=== PATIENT | female | born 1940 | race Caucasian/White ===

== ENCOUNTER 2016-09-09 09:25 | Inpatient (IN) | payer MEDICARE ==
--- NOTE | 2016-09-09 09:35 | ERPHSYRPT ---
- History of Present Illness Time Seen by Provider: 09/09/16 09:25 Source: patient Exam Limitations: clinical condition Patient Subjective Stated Complaint: PT REPORTS INCREASED SOB OVER THE LAST FEW DAYS-STATES THAT SHE HAS BEEN SLEEPING IN A CHAIR DUE TO SOB WHILE LIEING DOWN- REPORTS ALL OVER SWELLING Triage Nursing Assessment: PT PALE WARM ET DRY UPON ARRIVAL-SLIGHT RETRACTIONS NOTED-SOB WITH MOVEMENT NOTED-LUNGS CLEAR Timing/Duration: day(s) (3 worsened), week(s) (1) Severity of Dyspnea-Max: moderate Severity of Dyspnea-Current: moderate Possible Cause: no prior episodes Modifying Factors: Improves With: exertion, lying down Associated Symptoms: ankle swelling, leg swelling Allergies/Adverse Reactions: Penicillins Allergy (Verified 09/09/16 09:29) Home Medications: Aspirin 81 mg PO DAILY 09/09/16 [History] Hx Tetanus, Diphtheria Vaccination/Date Given: Yes Hx Influenza Vaccination/Date Given: No Hx Pneumococcal Vaccination/Date Given: No Immunizations Up to Date: Yes - Review of Systems Constitutional: No Symptoms Eyes: No Symptoms Ears, Nose, & Throat: No Symptoms Respiratory: Dyspnea, Dyspnea on Exertion (HERNANDEZ) Cardiac: Edema Abdominal/Gastrointestinal: No Symptoms Musculoskeletal: No Symptoms Skin: No Symptoms Neurological: No Symptoms Psychological: No Symptoms Endocrine: No Symptoms Hematologic/Lymphatic: No Symptoms - Past Medical History Pertinent Past Medical History: Yes Neurological History: Stroke - Past Surgical History Past Surgical History: Yes Gastrointestinal: Cholecystectomy, Hernia Repair Other Surgical History: gangene gb - Social History Smoking Status: Never smoker Exposure to second hand smoke: No Drug Use: none Patient Lives Alone: No - Female History Hx Now: No - Nursing Vital Signs Nursing Vital Signs: Initial Vital Signs Temperature 98.2 F Temperature Source Oral Pulse Rate 90 Respiratory Rate 22 Blood Pressure [Right Arm] 152/82 Pain Intensity 0 - Physical Exam General Appearance: moderate distress Eye Exam: eyes nml inspection Neck Exam: normal inspection, non-tender, supple, full range of motion Respiratory Exam: respiratory distress, crackles/rales (bibasilar) Cardiovascular/Chest Exam: normal heart sounds, regular rate/rhythm, edema (4+ pretibial chele LE) Abdominal/Gastrointestinal Exam: soft, normal bowel sounds Extremity Exam: non-tender, normal range of motion, pedal edema Peripheral Pulses Exam: dorsalis-pedis (R): 3+, dorsalis-pedis (L): 3+ Neurologic Exam: alert, oriented x 3, depressed mood/affect Skin Exam: normal color, warm, dry SpO2 Interpretation: hypoxic (with O2 sats decreased to 88% upon lying on stretcher here in ED) SpO2: 93 Oxygen Delivery: Room Air - Course Nursing assessment & vital signs reviewed: Yes EKG Interpreted by Me: RATE (99), Sinus Rhythm (with PAC's ), Left Hayward Deviation, Right Bundle Branch Block (with LAFB), Other (Anterior loss of R forces. Since ECG of 12.19.2013, the RBBB has widened. ) - Radiology Exams Chest X-ray Interpretation: Teleradiologist Report (New findings favor cardiac decompensation with cardiomegaly and bibasilar effusions. Diffuse partchy inf/ cannot exclude superimposed pneumonia.) Ordered Tests: Active Orders 24 hr Category Date Time Status Metal Cnc Operator STAT Care 09/09/16 09:27 Active EKG-ER Only STAT Care 09/09/16 09:27 Active IV Insertion STAT Care 09/09/16 09:27 Active Oxygen-ED Only NASAL CANNULA 2 lpm Care 09/09/16 09:27 Active Pulse Oximetry (ED) STAT Care 09/09/16 09:27 Active CHEST 1 VIEW (PORTABLE) Stat Exams 09/09/16 09:29 Completed ARTERIAL BLOOD GASES Urgent Lab 09/09/16 09:27 Completed CBC W DIFF Stat Lab 09/09/16 09:35 Completed CMP Stat Lab 09/09/16 09:35 Completed MAGNESIUM Stat Lab 09/09/16 09:35 Completed NT PRO BNP Stat Lab 09/09/16 09:35 Completed PROTIME WITH INR Stat Lab 09/09/16 09:35 Completed TROPONIN Stat Lab 09/09/16 09:35 Completed Medication Summary Generic Name Dose Route Start Last Admin Trade Name Freq PRN Reason Stop Dose Admin Levofloxacin/Dextrose 150 mls @ 100 mls/hr 09/09/16 10:35 Levofloxacin 750mg/150ml D5w IV 09/09/16 12:04 STAT ONE Discontinued Medications Generic Name Dose Route Start Last Admin Trade Name Freq PRN Reason Stop Dose Admin Furosemide 80 mg 09/09/16 10:35 Lasix 40 Mg/4 Ml IV 09/09/16 10:36 STAT ONE Lab/Rad Data: Laboratory Result Diagrams 09/09/16 09:35 09/09/16 09:35 Laboratory Results 09/09/16 09/09/16 09/09/16 Range/Units 09:35 09:35 09:35 WBC (4.0-10.5) K/mm3 RBC (4.1-5.4) M/mm3 Hgb (12.0-16.0) gm/dl Hct (35-47) % MCV (78-100) fl MCH (26-32) pg MCHC (32-36) g/dl RDW (11.5-14.0) % Plt Count (150-450) K/mm3 MPV (6-9.5) fl Gran % (36.0-66.0) % Lymphocytes % (24.0-44.0) % Monocytes % (0.0-12.0) % Eosinophils % (0.00-5.0) % Basophils % (0.0-0.4) % Basophils # (0-0.4) INR 1.11 (0.8-3.0) Puncture Site pCO2 (35-45) mmHg pO2 (75-100) mmHg Base Excess (-2.0-2.0) O2 Saturation (94-100) g/dF ABG pH (7.35-7.45) ABG HCO3 (22-28) ABG O2 Sat (Measured) (95-100) % Ang Test A-a Gradient a/A Ratio Hemoglobin Carboxyhemoglobin (0.0-6.9) % THgb Methemoglobin (1.4-1.5) % Potassium 4.1 (3.5-5.1) Temperature C POC O2 Flow Rate % Sodium 140 (136-145) mEq/L Chloride 103 (98-107) mEq/L Carbon Dioxide 26.4 (21-32) mEq/L Anion Gap 15.1 H (5-15) MEQ/L BUN 11 (9-20) mg/dL Creatinine 0.76 (0.55-1.30) mg/dl Estimated GFR > 60 ML/MIN Glucose 159 H (70-110) MG/DL Calcium 9.0 (8.5-10.1) mg/dL Magnesium 2.0 (1.8-2.4) mg/dL Total Bilirubin 0.6 (0.2-1.0) mg/dL AST 31 (15-37) U/L ALT 22 (12-78) U/L Alkaline Phosphatase 74 (46-116) U/L Troponin I 0.021 (0.000-0.056) ng/ml NT-Pro-B Natriuret Pep 3584 H (0-125) pg/ml Serum Total Protein 8.1 (6.4-8.2) gm/dL Albumin 3.9 (3.4-5.0) g/dL 09/09/16 09/09/16 Range/Units 09:35 09:27 WBC 9.0 (4.0-10.5) K/mm3 RBC 5.21 (4.1-5.4) M/mm3 Hgb 15.2 (12.0-16.0) gm/dl Hct 46.3 (35-47) % MCV 88.9 (78-100) fl MCH 29.2 (26-32) pg MCHC 32.8 (32-36) g/dl RDW 14.0 (11.5-14.0) % Plt Count 283 (150-450) K/mm3 MPV 10.8 H (6-9.5) fl Gran % 70.7 H (36.0-66.0) % Lymphocytes % 16.6 L (24.0-44.0) % Monocytes % 10.5 (0.0-12.0) % Eosinophils % 2.0 (0.00-5.0) % Basophils % 0.2 (0.0-0.4) % Basophils # 0.02 (0-0.4) INR (0.8-3.0) Puncture Site RIGHT BRACHIAL pCO2 35 (35-45) mmHg pO2 84 (75-100) mmHg Base Excess 0.8 (-2.0-2.0) O2 Saturation 96.0 (94-100) g/dF ABG pH 7.45 (7.35-7.45) ABG HCO3 24.3 (22-28) ABG O2 Sat (Measured) 97.0 (95-100) % Ang Test NOT APPLICABLE A-a Gradient 72 a/A Ratio 0.54 Hemoglobin 15.8 Carboxyhemoglobin 0.5 (0.0-6.9) % THgb Methemoglobin 0.5 L (1.4-1.5) % Potassium 3.9 (3.5-5.1) Temperature 37.0 C POC O2 Flow Rate 28 % Sodium (136-145) mEq/L Chloride (98-107) mEq/L Carbon Dioxide (21-32) mEq/L Anion Gap (5-15) MEQ/L BUN (9-20) mg/dL Creatinine (0.55-1.30) mg/dl Estimated GFR ML/MIN Glucose (70-110) MG/DL Calcium (8.5-10.1) mg/dL Magnesium (1.8-2.4) mg/dL Total Bilirubin (0.2-1.0) mg/dL AST (15-37) U/L ALT (12-78) U/L Alkaline Phosphatase (46-116) U/L Troponin I (0.000-0.056) ng/ml NT-Pro-B Natriuret Pep (0-125) pg/ml Serum Total Protein (6.4-8.2) gm/dL Albumin (3.4-5.0) g/dL - Progress Progress: improved Air Movement: good Blood Culture(s) Obtained: Yes Antibiotics given: Yes Discussed with : Franck Counseled pt/family regarding: lab results, diagnosis, rad results - Departure Time of Disposition: 10:45 Departure Disposition: In-patient Admission Clinical Impression: CHF (congestive heart failure) Qualifiers: Congestive heart failure type: unspecified congestive heart failure type Congestive heart failure chronicity: acute Qualified Code(s): I50.9 - Heart failure, unspecified Pneumonia Qualifiers: Pneumonia type: due to unspecified organism Laterality: bilateral Lung location : unspecified part of lung Qualified Code(s): J18.9 - Pneumonia, unspecified organism Condition: Stable Critical Care Time: Yes Critical Care Time(excluding separately billable procedures): 75-104 minutes Instructions: Heart Failure
[2016-09-09 09:43] LABS: BASOPHIL % 0.2 % (0.0-0.4); Granulocytes % 70.7 % (36.0-66.0); Lymphocytes % 16.6 % (24.0-44.0); Mean Cell Volume 88.9 fl (78-100); Mean Corpuscular Hemoglobin 29.2 pg (26-32); Mean Platelet Volume 10.8 fl (6-9.5); Monocytes % 10.5 % (0.0-12.0); Platelet Count 283 K/mm3 (150-450); Red Blood Count 5.21 M/mm3 (4.1-5.4)
[2016-09-09 09:48] LABS: A-aADO2 72; ARTERIAL BLOOD GAS BASE EXCESS 0.8 (-2.0-2.0); ARTERIAL BLOOD GAS FIO2 28 %; ARTERIAL BLOOD GAS PO2 84 mmHg (75-100); ARTERIAL BLOOD GAS pH 7.45 (7.35-7.45)
[2016-09-09 09:58] LABS: INR 1.11 (0.8-3.0); PROTIME 12.4 SECONDS (9.95-12.35)
[2016-09-09 10:12] LABS: ALBUMIN 3.9 g/dL (3.4-5.0); ALKALINE PHOSPHATASE 74 U/L (46-116); ANION GAP 15.1 MEQ/L (5-15); BILIRUBIN,TOTAL 0.6 mg/dL (0.2-1.0); BLOOD UREA NITROGEN 11 mg/dL (9-20); CHLORIDE 103 mEq/L (98-107); Carbon Dioxide 26.4 mEq/L (21-32); Glucose 159 MG/DL (70-110); Potassium 4.1 mEq/L (3.5-5.1); SGOT/AST 31 U/L (15-37); SGPT/ALT 22 U/L (12-78); SODIUM 140 mEq/L (136-145); Total Protein 8.1 gm/dL (6.4-8.2)
--- NOTE | 2016-09-09 10:12 | XRAY ---
Indication: Short of breath. Comparison: November 30, 2012. Portable chest demonstrates new cardiomegaly, vascular congestion, and small bibasilar effusions favoring cardiac decompensation. There are also diffuse patchy bilateral interstitial alveolar opacities concerning for superimposed pneumonia. Bony thorax intact again with mild osteopenia and degenerative changes. Impression: New findings favoring cardiac decompensation and superimposed pneumonia as detailed.
[2016-09-09] MEDS ORDERED: Lasix 40 MG/4 ML IV ONE (10:35)
[2016-09-09] MEDS ORDERED: LEVOFLOXACIN 750MG/150ML D5W 150 ML IV ONE ×2 (10:35→10:43)
[2016-09-09] MEDS ORDERED: Lasix 40 MG/4 ML ONE (10:43)
[2016-09-09] MEDS ORDERED: NovoLOG Insulin SQ PRN (12:05)
[2016-09-09] MEDS: Lasix 40 MG/4 ML IV SCH (16:19)
[2016-09-09] MEDS: Lopressor 25MG Tab PO SCH ×2 (16:55→21:46)
[2016-09-09] MEDS ORDERED: Lopressor 25MG Tab ONE (16:55)
[2016-09-10 05:48] LABS: Mean Corpuscular Hemoglobin 29.4 pg (26-32); Mean Platelet Volume 11.2 fl (6-9.5); Platelet Count 248 K/mm3 (150-450); Red Blood Count 4.89 M/mm3 (4.1-5.4); Red Cell Distribution Width 14.1 % (11.5-14.0); White Blood Count 7.3 K/mm3 (4.0-10.5)
[2016-09-10 06:23] LABS: ANION GAP 10.3 MEQ/L (5-15); Carbon Dioxide 31.8 mEq/L (21-32)
[2016-09-10] MEDS ORDERED: DUONEB 0.5-3 MG/3 ml Neb IH PRN (06:50)
--- NOTE | 2016-09-10 08:01 | PCM.HP ---
History of Present Illness - Chief Complaint Chief Complaint: pneumonia. chf. Date: 09/10/16 History of Present Illness: is a 76 year old female. Who has not been to a physician in several years since her PCP Dr. Fam left [facility]. She had been doing well on only an 81 mg aspirin daily up until about 2 months ago she became sick with what she thought was a cold or the flu and was coughing and would get short of breath. She would get better and worse depending on the day. She had progressively increasing swelling in her legs and shortness of breath worse with laying down. She thought it was getting better but 3 days ago worsened again and finally had her daughter take her to ED yesterday due to her shortness of breath. She denies any chest pain, nausea, vomiting or diarrhea. she is feeling better this am. - Review of Systems Constitutional: No Symptoms, Chills, Fatigue, No Fever Eyes: No Discharge Ears, Nose, & Throat: No Ear Pain, No Ear Discharge, No Hearing Changes, No Painful Swallowing Respiratory: Cough, Orthopnea, Short Of Breath Cardiac: Edema, No Chest Pain, No Palpitations, No Syncope Abdominal/Gastrointestinal: No Abdominal Pain, No Nausea, No Vomiting, No Diarrhea, No Melena Genitourinary Symptoms: No Dysuria, No Frequency, No Hematuria Musculoskeletal: No Arthralgias, No Back Pain, No Neck Pain Skin: No Cellulitis Neurological: No Dizziness, No Focal Weakness, No Headache Psychological: No Alcohol Abuse, No Drug Abuse, No Anxiety, No Depression Endocrine: No Polyuria, No Polydipsia, No Hair Changes Hematologic/Lymphatic: No Anemia, No Blood Clots, No Easy Bleeding Medications & Allergies Home Medications: Home Medication List Aspirin 81 mg PO DAILY 09/09/16 [History Confirmed 09/09/16] Allergies/Adverse Reactions: Allergies Allergy/AdvReac Type Severity Reaction Status Date / Time Penicillins Allergy Verified 09/09/16 09:29 - Past Medical History Past Medical History: Yes Neurological History: Stroke ENT History: Cataracts Cardiac History: No Pertinent History Respiratory History: Asthma, Bronchitis Endocrine Medical History: Diabetes Type II Musculoskelatal History: No Pertinent History GI Medical History: No Pertinent History History: Other Pyscho-Social History: No Pertinent History Reproductive Disorders: No Pertinent History Comment: Kindney stones. - Female History Hx Last Menstrual Period: unknown Are you now?: No - Past Surgical History Past Surgical History: Yes Neuro Surgical History: No Pertinent History Cardiac History: No Pertinent History Respiratory Surgery: No Pertinent History GI Surgical History: Cholecystectomy, Hernia Repair Genitourinary Surgical Hx: Kidney Surgery Musculskeletal Surgical Hx: No Pertinent History Female Surgical History: No Pertinent History Other Surgical History: gangene gb - Social History Smoking Status: Former smoker Exposure to second hand smoke: Yes Alcohol: None Drug Use: none - Physical Exam Vital Signs: Vital Signs - 24 hr Temp Pulse Resp BP Pulse Ox 09/10/16 06:00 20 09/10/16 04:00 98.6 F 72 20 148/92 97 09/10/16 02:00 18 09/09/16 23:57 97.8 F 69 18 132/76 96 09/09/16 22:00 18 09/09/16 21:05 68 18 90 L 09/09/16 20:00 98.6 F 83 20 139/98 94 L 09/09/16 18:00 19 09/09/16 16:00 98.8 F 93 H 19 144/100 91 L 09/09/16 12:41 96 09/09/16 12:32 97.7 F 103 H 22 180/106 93 L 09/09/16 12:05 96 09/09/16 11:40 98.2 F 90 180/106 93 L 09/09/16 10:52 93 L 09/09/16 10:35 90 22 152/82 95 09/09/16 09:39 98 09/09/16 09:25 98.2 F 115 H 28 H 178/83 93 L Oxygen-Last 24 hours O2 Percentage 2 Liters = 28% O2 Percentage 2 Liters = 28% O2 Percentage 2 Liters = 28% O2 Percentage 2 Liters = 28% O2 Percentage 2 Liters = 28% General Appearance: obese Neurologic Exam: alert, oriented x 3, cooperative Eye Exam: No scleral icterus, No pale conjunctivae Ears, Nose, Throat Exam: dry mucous membranes Neck Exam: non-tender, supple Respiratory Exam: crackles/rales, No accessory muscle use, No rhonchi, No wheezing Cardiovascular Exam: regular rate/rhythm, normal heart sounds, edema Gastrointestinal/Abdomen Exam: soft, normal bowel sounds, No tenderness, No distention Extremity Exam: normal inspection, No calf tenderness, No pedal edema Skin Exam: warm, dry Results - Labs Lab/Micro Results: Accuchecks Date 09/09/16 Date 09/09/16 Time 22:00 Time 16:30 Accucheck Value: 167 Accucheck Value: 131 Lab Results-Last 24 Hours 09/10/16 09/10/16 Range/Units 05:28 05:28 WBC 7.3 (4.0-10.5) K/mm3 RBC 4.89 (4.1-5.4) M/mm3 Hgb 14.4 (12.0-16.0) gm/dl Hct 44.5 (35-47) % MCV 91.0 (78-100) fl MCH 29.4 (26-32) pg MCHC 32.4 (32-36) g/dl RDW 14.1 H (11.5-14.0) % Plt Count 248 (150-450) K/mm3 MPV 11.2 H (6-9.5) fl Sodium 141 (136-145) mEq/L Potassium 4.0 (3.5-5.1) mEq/L Chloride 103 (98-107) mEq/L Carbon Dioxide 31.8 (21-32) mEq/L Anion Gap 10.3 (5-15) MEQ/L BUN 13 (9-20) mg/dL Creatinine 1.08 (0.55-1.30) mg/dl Estimated GFR 53 ML/MIN Glucose 134 H (70-110) MG/DL Calcium 8.9 (8.5-10.1) mg/dL NT-Pro-B Natriuret Pep 4229 H (0-125) pg/ml Accuchecks Date 09/09/16 Date 09/09/16 Time 22:00 Time 16:30 Accucheck Value: 167 Accucheck Value: 131 - Other Procedures and Tests Respiratory Therapy 09/10/16 06:50 neb [Respiratory Nebulizer] PRN Assessment/Plan (1) CHF (congestive heart failure) Current Visit: Yes Status: Acute Qualifiers: Congestive heart failure type: systolic Congestive heart failure chronicity : acute Qualified Code(s): I50.21 - Acute systolic (congestive) heart failure Assessment & Plan: preliminary echo results show EF of 40% diuresis of net 2L since arrival Dr. Tobar did consult and see her last night note and official echo read pending continue aspirin, add lisinopril, metoprolol continue diuresis with K supplement monitor am labs monitor I/O telemetry wean O2 as tolerated. Code(s): I50.9 - HEART FAILURE, UNSPECIFIED (2) Pneumonia Current Visit: Yes Status: Acute Qualifiers: Pneumonia type: due to unspecified organism Laterality: bilateral Lung location: unspecified part of lung Qualified Code(s): J18.9 - Pneumonia, unspecified organism Assessment & Plan: likely predominent symptoms due to the heart failure but given severity and recent worsening with the cxr findings continue levoquin tx for now. Code(s): J18.9 - PNEUMONIA, UNSPECIFIED ORGANISM (3) Hyperglycemia Current Visit: Yes Status: Acute Assessment & Plan: she reports history of some sugar problems but not on medication is elevated currently check A1c. Code(s): R73.9 - HYPERGLYCEMIA, UNSPECIFIED
[2016-09-10] MEDS: LEVOFLOXACIN 750MG/150ML D5W 150 ML IV SCH (09:26)
[2016-09-10] MEDS: Zestril 5 MG PO SCH ×2 (09:28→22:04)
[2016-09-10] MEDS: Klor Con 10 MEQ PO SCH ×4 (09:28→22:03)
[2016-09-10] MEDS: ECOTRIN 81 MG PO SCH (09:28)
[2016-09-10] MEDS: Lopressor 25MG Tab PO SCH ×2 (09:29→22:03)
[2016-09-10] MEDS: Lasix 40 MG/4 ML IV SCH ×2 (09:32→16:23)
[2016-09-10] MEDS ORDERED: LEVOFLOXACIN 750MG/150ML D5W 150 ML IV SCH (10:00)
[2016-09-10] MEDS ORDERED: PREVNAR 13 SYRINGE IM ONE (10:00)
[2016-09-10] MEDS ORDERED: FLUZONE HIGH-DOSE 2016-17 SYR IM ONE (10:00)
--- NOTE | 2016-09-10 16:10 | CONS ---
CONSULT DATE: 09/09/16 BRIEF HISTORY: This is a 76 y/o female who was seen because of progressive shortness of breath. The patient states that prior to 2 months ago, she has been doing relatively well until she suddenly had some flu-like symptoms associated with shortness of breath. There would be some days when she would have shortness of breath for several weeks and would feel good for the next 2-3 days and then would again get short of breath. She denies any chest pain. She did have some orthopnea. No syncopal attacks. No palpitations. She has never had any cardiac related problems in the past. About 4 years ago, she had a stroke that affected the right side, but there is no significant residual neurological deficit. At the time of her examination, she states that she feels better. She has been given IV diuretics. Her NT Pro BNP is markedly elevated. She has never had myocardial infarction or prior history of congestive heart failure. Chest x-ray did show some pulmonary congestive changes with possible pneumonia. CARDIOVASCULAR RISK FACTORS: Negative for diabetes. Positive for hypertension. She does not smoke. No known hyperlipidemia. Family history is negative for premature coronary artery disease, but father from a stroke. CURRENT MEDICATIONS: Metoprolol 25 mg bid, furosemide 40 mg IV bid, and aspirin. REVIEW OF SYSTEMS: PATIENT SCHEDULING MANAGER: She has had a stroke in the past. RESPIRATORY: She was told to have some fluid in her lungs. GI: Denies any nausea or vomiting. No heartburn. : Negative for dysuria. No hematuria. She did have a history of kidney stone several years ago. PERIPHERAL VASCULAR: No history of deep vein thrombosis or claudication. ENDOCRINE: No history of thyroid disorder. HEMATOLOGY: No history of blood dyscrasia or transfusion. SKIN: No active dermatological problem. MUSCULOSKELETAL: She has some degenerative joint disorder. CONSTITUTIONAL: No significant weight gain or weight loss. PAST SURGICAL HISTORY: Included surgery for kidney stone. SOCIAL HISTORY: She is . She has no significant alcohol intake. PHYSICAL EXAMINATION: Her BP is 152/82 with a heart rate of 90, respirations about 18. GENERAL: The patient is an elderly female who is alert and oriented who gets short of breath with very little exertion. HEENT: Mildly pale conjunctivae. NECK: No significant JVD. CHEST: The breath sounds are diminished bilaterally with some crackles on both lung bailey. No rhonchi. CARDIAC: Heart tones are distant. The rhythm is regular with occasional premature beats. ABDOMEN: Soft with no bowel sounds. EXTREMITIES: There is bilateral leg edema with decreased distal pulses. The chest x-ray shows changes of cardiac decompensation and possible pneumonia. The initial EKG done on 09/09/16 at 9:50 shows sinus tachycardia with RBBB and a left anterior griselda-block. LABORATORY DATA: The troponin I is 0.021. The NT Pro BNP is 3584. Serum electrolytes are within normal. The creatinine is 0.76 with a GFR of 60. CBC shows Hgb of 15.2. ASSESSMENT AND PLAN: 1. PROGRESSIVE SHORTNESS OF BREATH WITH BACKGROUND OF VIRAL INFECTION. 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 Will review her echocardiogram to assess left ventricular systolic function and also diastolic function. Agree with IV diuretics as she appears to be in acute systolic heart failure. Will add angiotensin-converting enzyme inhibitors. Continue with beta-blockers. Start the patient on aspirin. A lipid panel is ordered if one has not be performed. Will follow-up with you.
--- NOTE | 2016-09-10 16:16 | ECHO ---
DATE: 09/09/16 A transthoracic echocardiograph examination with color Doppler study was done. INDICATION: Congestive heart failure. IMPRESSION: 1. GLOBAL LEFT VENTRICULAR HYPOKINESIA WITH ESTIMATED GLOBAL LEFT VENTRICULAR EJECTION FRACTION AROUND 30%. 2. MODERATE MITRAL REGURGITATION. 3. LEFT VENTRICULAR DIASTOLIC DYSFUNCTION. 4. MILD TRICUSPID REGURGITATION WITH RIGHT VENTRICULAR SYSTOLIC PRESSURE OF 52 MM OF MERCURY SUGGESTIVE OF MODERATE PULMONARY HYPERTENSION. 5. MILDLY DILATED RIGHT-SIDED CHAMBERS. The left ventricle was visualized and demonstrated global type of hypokinesia with estimated global left ventricular ejection fraction of around 30%. The left ventricular thickness is normal. The mitral valve was seen and this opens adequately. There is moderate mitral regurgitation. The left atrium is normal. Tissue Doppler study of the lateral mitral annulus is suggestive of left ventricular diastolic dysfunction. The aortic valve is sclerotic. There is no significant gradient across the aortic valve. The right-sided chambers are mildly dilated. There is mild tricuspid regurgitation with right ventricular systolic pressure of 52 mm Hg suggestive of moderate pulmonary hypertension.
[2016-09-11 06:03] LABS: Mean Corpuscular Hemoglobin 29.1 pg (26-32); Platelet Count 251 K/mm3 (150-450); Red Blood Count 5.02 M/mm3 (4.1-5.4); Red Cell Distribution Width 14.1 % (11.5-14.0); White Blood Count 8.4 K/mm3 (4.0-10.5)
[2016-09-11 06:06] LABS: ANION GAP 10.7 MEQ/L (5-15); Carbon Dioxide 30.2 mEq/L (21-32)
[2016-09-11] MEDS: Lopressor 25MG Tab PO SCH ×2 (09:08→21:21)
[2016-09-11] MEDS: Lasix 40 MG/4 ML IV SCH ×2 (09:08→16:40)
[2016-09-11] MEDS: Zestril 5 MG PO SCH ×2 (09:08→21:21)
[2016-09-11] MEDS: LEVOFLOXACIN 750MG/150ML D5W 150 ML IV SCH (09:09)
[2016-09-11] MEDS: ECOTRIN 81 MG PO SCH (09:09)
[2016-09-11] MEDS: Klor Con 10 MEQ PO SCH ×4 (09:09→21:21)
--- NOTE | 2016-09-11 10:31 | PCM.NOTE ---
Date and Time: 09/11/16 1026 Subjective Assessment: breathing much better walking with less shortness of breath now swelling improving took off O2 last evening still a little short of breath this am with activity or laying flat left leg still more swollen then right now. Objective Exam General Appearance: no apparent distress, obese Neurologic Exam: alert, oriented x 3, cooperative Skin Exam: warm, dry Eye Exam: No pale conjunctivae Ears, Nose, Throat Exam: moist mucous membranes Neck Exam: non-tender, supple Respiratory Exam: crackles/rales (left base), No accessory muscle use, No rhonchi, No wheezing Cardiovascular Exam: regular rate/rhythm, normal heart sounds, edema (2+ left lower extremity 1+ right lower extremity) Gastrointestinal/Abdomen Exam: soft, normal bowel sounds, No tenderness, No distention Extremity Exam: normal inspection, No calf tenderness OBJECTIVE DATA Vital Signs: Vital Signs - 24 hr Temp Pulse Resp BP Pulse Ox 09/11/16 07:38 98.0 F 68 18 134/77 92 L 09/11/16 06:00 20 09/11/16 04:00 98.3 F 69 20 123/73 95 09/11/16 02:00 20 09/11/16 00:00 97.8 F 69 20 129/75 94 L 09/10/16 23:52 92 L 09/10/16 22:00 20 09/10/16 20:17 82 20 91 L 09/10/16 19:51 97.8 F 80 20 130/73 96 09/10/16 17:20 18 09/10/16 16:00 69 18 139/73 92 L 09/10/16 13:54 20 09/10/16 12:00 97.9 F 76 20 155/81 94 L Pain Assessment - Last Documented Pain Scale Used 0-10 Pain Scale Intake and Output: Intake & Output 09/08/16 09/09/16 09/10/16 09/11/16 11:59 11:59 11:59 11:59 Intake Total 970 1000 Output Total 3700 4000 Balance -2730 -3000 Weight 97.976 kg Lab Results: Accuchecks Date 09/10/16 Date 09/10/16 Date 09/10/16 Time 22:00 Accucheck Value: 118 Accucheck Value: 112 Accucheck Value: 147 Lab Results-Last 24 Hours 09/10/16 09/11/16 09/11/16 Range/Units 05:15 05:20 05:20 WBC 8.4 (4.0-10.5) K/mm3 RBC 5.02 (4.1-5.4) M/mm3 Hgb 14.6 (12.0-16.0) gm/dl Hct 45.2 (35-47) % MCV 90.0 (78-100) fl MCH 29.1 (26-32) pg MCHC 32.3 (32-36) g/dl RDW 14.1 H (11.5-14.0) % Plt Count 251 (150-450) K/mm3 MPV 11.0 H (6-9.5) fl Sodium (136-145) mEq/L Potassium (3.5-5.1) mEq/L Chloride (98-107) mEq/L Carbon Dioxide (21-32) mEq/L Anion Gap (5-15) MEQ/L BUN (9-20) mg/dL Creatinine (0.55-1.30) mg/dl Estimated GFR ML/MIN Glucose (70-110) MG/DL Hemoglobin A1c 6.2 (4.5-6.2) Calcium (8.5-10.1) mg/dL Troponin I 0.030 (0.000-0.056) ng/ml 09/11/16 Range/Units 05:20 WBC (4.0-10.5) K/mm3 RBC (4.1-5.4) M/mm3 Hgb (12.0-16.0) gm/dl Hct (35-47) % MCV (78-100) fl MCH (26-32) pg MCHC (32-36) g/dl RDW (11.5-14.0) % Plt Count (150-450) K/mm3 MPV (6-9.5) fl Sodium 138 (136-145) mEq/L Potassium 4.0 (3.5-5.1) mEq/L Chloride 101 (98-107) mEq/L Carbon Dioxide 30.2 (21-32) mEq/L Anion Gap 10.7 (5-15) MEQ/L BUN 20 (9-20) mg/dL Creatinine 1.03 (0.55-1.30) mg/dl Estimated GFR 56 ML/MIN Glucose 127 H (70-110) MG/DL Hemoglobin A1c (4.5-6.2) Calcium 9.0 (8.5-10.1) mg/dL Troponin I (0.000-0.056) ng/ml Assessment/Plan (1) CHF (congestive heart failure) Current Visit: Yes Status: Acute Qualifiers: Congestive heart failure type: systolic Congestive heart failure chronicity : acute Qualified Code(s): I50.21 - Acute systolic (congestive) heart failure Assessment & Plan: tolerating lisinopril and metoprolol and aspirin good diuresis thus far of 5.73 L since admission symptoms are improving still fluid overload continue low sodium diet with education provided on high sodium foods continue iv diuresis today possibly home tomorrow if continues to improve. Code(s): I50.9 - HEART FAILURE, UNSPECIFIED (2) Pneumonia Current Visit: Yes Status: Acute Qualifiers: Pneumonia type: due to unspecified organism Laterality: bilateral Lung location: unspecified part of lung Qualified Code(s): J18.9 - Pneumonia, unspecified organism Assessment & Plan: improving continue levoquin for 7d coarse Code(s): J18.9 - PNEUMONIA, UNSPECIFIED ORGANISM (3) Hyperglycemia Current Visit: Yes Status: Resolved Assessment & Plan: no previous history of diabetes and A1c at 6.2% currently may d/c accuchecks. Code(s): R73.9 - HYPERGLYCEMIA, UNSPECIFIED
[2016-09-12 07:10] VITALS: BP 133/68; PULSE 82; O2SAT 91
--- NOTE | 2016-09-12 08:47 | PCM.DCORD ---
- Discharge Discharge Date: 09/12/16 Disposition: Home, Self-Care Condition: Stable Prescriptions: New Potassium Chloride [Klor-Con 8] 8 meq PO DAILY #30 tablet.er Furosemide 40 mg [Lasix 40 MG] 40 mg PO DAILY #30 tablet Continue Aspirin 81 mg PO DAILY Instructions: Heart Failure, Pneumonia -- Adult, Diabetes Type 2 Additional Instructions: Please fill your new prescriptions and take as directed. You need to establish and follow up with a family doctor in one week. Please continue to take your asprin daily. Follow up with: DOCTOR,NO FAMILY [NON-STAFF PHY W/O PRIVILEGES] -
[2016-09-12] MEDS: Klor Con 10 MEQ PO SCH (09:07)
[2016-09-12] MEDS: ECOTRIN 81 MG PO SCH (09:07)
[2016-09-12] MEDS: Lopressor 25MG Tab PO SCH (09:08)
[2016-09-12] MEDS: LEVOFLOXACIN 750MG/150ML D5W 150 ML IV SCH (09:10)
[2016-09-12] MEDS: Lasix 40 MG/4 ML IV SCH (09:10)
[2016-09-12] MEDS: Zestril 5 MG PO SCH (09:24)
[2016-09-12 10:17] LABS: ANION GAP 15.1 MEQ/L (5-15); Carbon Dioxide 26.2 mEq/L (21-32); Potassium 3.9 mEq/L (3.5-5.1)
--- NOTE | 2016-09-12 13:25 | DS ---
DISCHARGE DIAGNOSIS: CONGESTIVE HEART FAILURE POSSIBLY DUE TO CARDIOMYOPATHY FROM VIRAL ILLNESS. INJECTION PRESS OPERATOR: Dr. Tobar. HISTORY: The patient is a 76 year-old white female who presented herself to the emergency room after she had been ill for about a month with increasing shortness of breath. The patient reports that it worse with lying down. She had been swelling all over especially in her lower extremities. The patient was seen in the emergency room and subsequently admitted to the hospital for further evaluation and management. HOSPITAL COURSE: The patient was seen in consultation with Dr. Tobar. Echocardiogram was ordered but the reports are not currently available. The patient did appear to be in heart failure and was given IV Lasix after which the edema greatly diminished. The patient was feeling much better with essentially no shortness of breath at this point. The patient's laboratory studies show a totally normal CBC. She had ABG showing a pH of 7.45, pCO2 of 35, pO2 of 84. She had international normalized ratio of 1.11. Nonfasting sugar at 159. Her metabolic panel was otherwise normal. ProBNP was 3,584. Troponin was 0.021. Lactic acid 1.1. Her CBC showed a white blood cell count of 7,300, hemoglobin 14.4, PLT count 248,000. The patient was felt to be ready for discharge home by the morning of 09/12/2016. Addendum to the above patient's impression showed chest x-ray favoring cardiac decompensation, superimposed pneumonia. Discharge plan for the patient to continue to take aspirin 81 mg a day. She is asked to take Lasix 40 mg once daily, and potassium 8 mEq daily. She is instructed to follow up with Dr. Tobar in his office in one week. NOTE: The patient is not normally my patient. In fact I had not seen her for many years. She however is welcome to see me in the office in one week or she may follow up with Dr. Oc Garcia as he had seen her over the weekend. She is instructed to come back or call the office if she has any problems of increasing shortness of breath in the interim or chest discomfort.
== END 2016-09-12 12:49 | disposition home health service (06) | DRG 291 ==
LOC: ED 09:25 → MED SURG 11:51
PROVIDERS: ADMIT Family Medicine; ATTEND Family Medicine
DX: I50.21 Acute systolic (congestive) heart failure (principal); J18.9 Pneumonia, unspecified organism; I42.9 Cardiomyopathy, unspecified; R73.9 Hyperglycemia, unspecified; I10 Essential (primary) hypertension; Z79.899 Other long term (current) drug therapy
CPT/HCPCS: 36000; 36415; 36600; 71010; 80048; 80053; 82375; 82803; 82962; 83036; 83605; 83735; 83880; 84484; 85025; 85027; 85610; 87040; 90662; 90670; 93005; 93041; 93306; 94760; 96360; 96374; 99285; G0009; J1940; J1956; A9270-GY

== ENCOUNTER 2018-10-01 13:55 | Emergency (ER) | payer MEDICARE ==
[2018-10-01] MEDS ORDERED: DUONEB 0.5-3 MG/3 ml Neb IH ONE ×2 (14:13→14:35)
--- NOTE | 2018-10-01 14:28 | ERPHSYRPT ---
- History of Present Illness Time Seen by Provider: 10/01/18 14:08 Source: patient Exam Limitations: no limitations Patient Subjective Stated Complaint: Pt states "I have had a hard time breathing for a month and a half." Triage Nursing Assessment: PT presented alert and oriented X 3, skin pwd Pt arrived in wheelchair and tachypniec. PT able to speak in clear full sentences. Physician History: 78-year-old white female arrives with complaint of difficulty breathing for 1-1/ 2 months she denies any fever she does state she's been having cough denies chest pain nausea or vomiting. Past medical history includes CVA, cataracts, diabetes type 2, asthma, bronchitis, kidney stones Past surgical history includes cataracts, cholecystectomy, hernia repair, kidney surgery, gangrene of the gallbladder. Social history denies tobacco alcohol or illicit drug use Timing/Duration: other (symptoms for 1-1/2 months) Severity: moderate Modifying Factors: Improves With: nothing Associated Symptoms: shortness of breath, cough, No nausea, No vomiting, No abdominal pain, No heartburn, No diaphoresis, No chills, No chest pain, No fever , No headaches, No loss of appetite, No malaise, No rash, No syncope, No seizure , No weakness (I guess of her put in) Allergies/Adverse Reactions: Penicillins Allergy (Verified 09/09/16 09:29) Home Medications: Aspirin 81 mg PO DAILY 09/09/16 [History] Hx Tetanus, Diphtheria Vaccination/Date Given: No Hx Influenza Vaccination/Date Given: Yes Hx Pneumococcal Vaccination/Date Given: No Immunizations Up to Date: Yes - Review of Systems Constitutional: No Symptoms Eyes: No Symptoms Ears, Nose, & Throat: No Symptoms Respiratory: Cough, Dyspnea, Dyspnea on Exertion (HERNANDEZ), No Cyanosis, No Stridor Cardiac: No Chest Pain (Augmentin as per), No Edema, No Palpitations, No Syncope , No Orthopnea Abdominal/Gastrointestinal: No Abdominal Pain, No Nausea, No Vomiting, No Diarrhea Genitourinary Symptoms: No Dysuria Musculoskeletal: No Back Pain, No Neck Pain Skin: No Rash Neurological: No Dizziness, No Focal Weakness, No Sensory Changes Psychological: No Symptoms Endocrine: No Symptoms All Other Systems: Reviewed and Negative - Past Medical History Pertinent Past Medical History: Yes Neurological History: Stroke ENT History: Cataracts Cardiac History: No Pertinent History Respiratory History: Asthma, Bronchitis Endocrine Medical History: Diabetes Type II Musculoskeletal History: No Pertinent History GI Medical History: No Pertinent History History: Other Psycho-Social History: No Pertinent History Female Reproductive Disorders: No Pertinent History Other Medical History: Kindney stones. - Past Surgical History Past Surgical History: Yes Neuro Surgical History: No Pertinent History Cardiac: No Pertinent History Respiratory: No Pertinent History Gastrointestinal: Cholecystectomy, Hernia Repair Genitourinary: Kidney Surgery Musculoskeletal: No Pertinent History Female Surgical History: No Pertinent History Other Surgical History: gangene gb - Social History Smoking Status: Never smoker Exposure to second hand smoke: Yes Drug Use: none Patient Lives Alone: Yes - Female History Hx Now: No - Nursing Vital Signs Nursing Vital Signs: Initial Vital Signs Temperature 98.5 F 10/01/18 14:00 Pulse Rate 114 H 10/01/18 14:00 Respiratory Rate 28 H 10/01/18 14:00 O2 Sat by Pulse Oximetry 92 L 10/01/18 14:00 Pain Scale Pain Intensity 2 - Physical Exam General Appearance: mild distress, alert Eye Exam: PERRL/EOMI, eyes nml inspection Ears, Nose, Throat Exam: normal ENT inspection, TMs normal, pharynx normal, moist mucous membranes Neck Exam: normal inspection, non-tender, supple, full range of motion Respiratory Exam: lungs clear, diminished breath sounds, No respiratory distress Cardiovascular Exam: regular rate/rhythm, normal heart sounds, normal peripheral pulses, capillary refill <2 sec Gastrointestinal/Abdomen Exam: soft, normal bowel sounds, No tenderness, No mass Back Exam: normal inspection, normal range of motion, No CVA tenderness, No vertebral tenderness Extremity Exam: normal inspection, normal range of motion, pelvis stable Neurologic Exam: alert, oriented x 3, cooperative, print production manager II-XII nml as tested, normal mood/affect, nml cerebellar function, nml station & gait, sensation nml, No motor deficits Skin Exam: normal color, warm, dry, No rash Lymphatic Exam: No adenopathy SpO2 Interpretation: normal (93%) SpO2: 93 - Course Nursing assessment & vital signs reviewed: Yes EKG Interpreted by Me: RATE (102 bpm), Sinus Tach, Left [place] Deviation, Other ( EKG: Sinus tachycardiawith first-degree AV b, 10 2 bpm, left axis deviation,, no acute ST or T wave changes noted) - Radiology Exams Chest X-ray Interpretation: Discussed w/ radiologist (chest x-ray: Cardiomegaly, vascular congestion, pulmonary edema, and small by basilar effusions favoring cardiac decomposition. Superimposed pneumonia not completely excluded.) - CT Exams Chest CT Interpretation: Discussed w/radiologist (CT chest with contrast: Impression: 1. Negative pulmonary embolus. 2. Cardiomegaly with interstitial edema and bilateral effusions favoring cardiac decompensation. 3. Abnormal right hilar adenopathy with subsequent right middle lobe subsegmental atelectasis . Also incompletely visualized mesenteric root adenopathy. Rule out primary versus metastatic malignancy. 4. Left lobe peripheral masslike opacity. 5. Incidental fatty live, splenomegaly, and evidence for old granulomatousa disease.) Ordered Tests: Active Orders 24 hr Category Date Time Status Public Works Technician STAT Care 10/01/18 14:14 Active EKG-ER Only STAT Care 10/01/18 14:13 Active IV Insertion STAT Care 10/01/18 14:13 Active Pulse Oximetry (ED) STAT Care 10/01/18 14:13 Active CHEST 1 VIEW (PORTABLE) Stat Exams 10/01/18 14:14 Completed CHEST WITH CONTRAST [CT] Stat Exams 10/01/18 15:23 Completed BLOOD CULTURE Stat Lab 10/01/18 15:00 Received CBC W DIFF Stat Lab 10/01/18 14:30 Completed CMP Stat Lab 10/01/18 14:30 Completed D-DIMER QUANTITATION Stat Lab 10/01/18 14:30 Completed Lactic Acid Stat Lab 10/01/18 14:50 Completed NT PRO BNP Stat Lab 10/01/18 14:30 Completed TROPONIN Q3H Lab 10/01/18 14:30 Completed TROPONIN Q3H Lab 10/01/18 17:45 Received TROPONIN Q3H Lab 10/01/18 20:15 Ordered TROPONIN Q3H Lab 10/01/18 23:15 Ordered TROPONIN Q3H Lab 10/02/18 02:15 Ordered VENOUS BLOOD GAS Stat Lab 10/01/18 14:50 Completed Peak Expiratory Flow Rate ONCE RT 10/01/18 14:41 Active Respiratory Nebulizer STAT RT 10/01/18 14:20 Completed Respiratory Nebulizer STAT RT 10/01/18 15:26 Completed Respiratory Therapy Assessment DAILY RT 10/01/18 14:41 Active Medication Summary Discontinued Medications Generic Name Dose Route Start Last Admin Trade Name Freq PRN Reason Stop Dose Admin Albuterol Sulfate 2.5 mg 10/01/18 15:25 10/01/18 15:36 Proventil 2.5 Mg/3 Ml Neb IH 10/01/18 15:26 2.5 mg STAT ONE Administration Albuterol Sulfate Confirm 10/01/18 15:35 Proventil 2.5 Mg/3 Ml Neb Administered 10/01/18 15:36 Dose 2.5 mg IH .STK-MED ONE Albuterol/Ipratropium 3 ml 10/01/18 14:13 10/01/18 14:36 Duoneb 0.5-3 Mg/3 Ml Neb IH 10/01/18 14:14 3 ml STAT ONE Administration Albuterol/Ipratropium Confirm 10/01/18 14:35 Duoneb 0.5-3 Mg/3 Ml Neb Administered 10/01/18 14:36 Dose 3 ml IH .STK-MED ONE Furosemide 40 mg 10/01/18 14:42 10/01/18 14:53 Lasix 40 Mg/4 Ml IV 10/01/18 14:43 40 mg STAT ONE Administration Furosemide Confirm 10/01/18 14:53 Lasix 40 Mg/4 Ml Administered 10/01/18 14:54 Dose 40 mg .ROUTE .STK-MED ONE Ceftriaxone Sodium/Dextrose 1 g in 50 mls @ 100 mls/hr 10/01/18 15:52 16:45 Rocephin 1 Gm-D5w 50 Ml Bag IV 10/01/18 16:21 Infused STAT STA Infusion Ceftriaxone Sodium/Dextrose Confirm 10/01/18 15:54 Rocephin 1 Gm-D5w 50 Ml Bag Administered 10/01/18 15:55 Dose 1 g in 50 mls @ ud IV .STK-MED ONE Methylprednisolone Sodium Succinate 125 mg 10/01/18 15:52 10/01/18 16:03 Solu-Medrol 125 Mg IV 10/01/18 15:53 125 mg STAT ONE Administration Methylprednisolone Sodium Succinate Confirm 10/01/18 15:54 Solu-Medrol 125 Mg Administered 10/01/18 15:55 Dose 125 mg .ROUTE .STK-MED ONE Lab/Rad Data: Laboratory Result Diagrams 10/01/18 14:30 04/22/19 14:30 Laboratory Results 10/01/18 10/01/18 10/01/18 Range/Units 14:50 14:30 14:30 WBC (4.0-10.5) K/mm3 RBC (4.1-5.4) M/mm3 Hgb (12.0-16.0) gm/dl Hct (35-47) % MCV (78-100) fl MCH (26-32) pg MCHC (32-36) g/dl RDW (11.5-14.0) % Plt Count (150-450) K/mm3 MPV (6-9.5) fl Gran % (36.0-66.0) % Eos # (Auto) (0-0.5) Absolute Lymphs (auto) (1.0-4.6) Absolute Monos (auto) (0.0-1.3) Lymphocytes % (24.0-44.0) % Monocytes % (0.0-12.0) % Eosinophils % (0.00-5.0) % Basophils % (0.0-0.4) % Absolute Granulocytes (1.4-6.9) Basophils # (0-0.4) D-Dimer 698 H* (215-500) ng/mL pO2/FiO2 Ratio 21.0 % VBG pH 7.44 H (7.32-7.42) VBG pCO2 at Pat Temp 35 L (42-55) mm/Hg VBG pO2 at Pat Temp 55 H (25-40) mm/Hg VBG HCO3 23.8 (22-28) meq/L VBG O2 Sat (Carmen) 93.1 L (95-100) VBG Base Excess 0.2 (-2.0-2.0) VBG Hemoglobin 16.3 VBG Carboxyhemoglobin 4.2 (0.0-6.9) % T HGB POC Potassium 3.8 (3.5-5.1) Sodium (137-145) mmol/L Potassium (3.5-5.1) mmol/L Chloride (98-107) mmol/L Carbon Dioxide (22-30) mmol/L Anion Gap (5-15) MEQ/L BUN (7-17) mg/dL Creatinine (0.52-1.04) mg/dL Estimated GFR ML/MIN Glucose (74-106) mg/dL Lactic Acid 1.8 (0.4-2.0) Calcium (8.4-10.2) mg/dL Total Bilirubin (0.2-1.3) mg/dL AST (14-36) U/L ALT (0-35) U/L Alkaline Phosphatase (38-126) U/L Troponin I < 0.012 (0.000-0.034) ng/mL NT-Pro-B Natriuret Pep (0-1800) pg/mL Serum Total Protein (6.3-8.2) g/dL Albumin (3.5-5.0) g/dL 10/01/18 10/01/18 Range/Units 14:30 14:30 WBC 5.9 (4.0-10.5) K/mm3 RBC 5.44 H (4.1-5.4) M/mm3 Hgb 15.8 (12.0-16.0) gm/dl Hct 48.7 H (35-47) % MCV 89.5 (78-100) fl MCH 29.0 (26-32) pg MCHC 32.4 (32-36) g/dl RDW 14.0 (11.5-14.0) % Plt Count 255 (150-450) K/mm3 MPV 11.3 H (6-9.5) fl Gran % 63.8 (36.0-66.0) % Eos # (Auto) 0.12 (0-0.5) Absolute Lymphs (auto) 1.43 (1.0-4.6) Absolute Monos (auto) 0.58 (0.0-1.3) Lymphocytes % 24.2 (24.0-44.0) % Monocytes % 9.8 (0.0-12.0) % Eosinophils % 2.0 (0.00-5.0) % Basophils % 0.2 (0.0-0.4) % Absolute Granulocytes 3.76 (1.4-6.9) Basophils # 0.01 (0-0.4) D-Dimer (215-500) ng/mL pO2/FiO2 Ratio % VBG pH (7.32-7.42) VBG pCO2 at Pat Temp (42-55) mm/Hg VBG pO2 at Pat Temp (25-40) mm/Hg VBG HCO3 (22-28) meq/L VBG O2 Sat (Carmen) (95-100) VBG Base Excess (-2.0-2.0) VBG Hemoglobin VBG Carboxyhemoglobin (0.0-6.9) % T HGB POC Potassium (3.5-5.1) Sodium 140 (137-145) mmol/L Potassium 3.6 (3.5-5.1) mmol/L Chloride 104 (98-107) mmol/L Carbon Dioxide 24 (22-30) mmol/L Anion Gap 15.4 H (5-15) MEQ/L BUN 9 (7-17) mg/dL Creatinine 0.62 (0.52-1.04) mg/dL Estimated GFR > 60.0 ML/MIN Glucose 114 H (74-106) mg/dL Lactic Acid (0.4-2.0) Calcium 9.8 (8.4-10.2) mg/dL Total Bilirubin 1.00 (0.2-1.3) mg/dL AST 27 (14-36) U/L ALT 16 (0-35) U/L Alkaline Phosphatase 82 (38-126) U/L Troponin I (0.000-0.034) ng/mL NT-Pro-B Natriuret Pep 3260 H (0-1800) pg/mL Serum Total Protein 8.4 H (6.3-8.2) g/dL Albumin 4.4 (3.5-5.0) g/dL - Progress Progress: improved Progress Note: 10/01/18 18:10 A 78-year-old white female arrives with complaint of one and half months of a shortness of breath patient with moderate shortness of breath on arrival patient with the temperature of 98 2 pulse 94 respiration 25 blood pressure 174/ 104 which currently is 161/9699% on room air patient with diminished breath sounds on initial examination patient is noted to have an EKG showing sinus tachycardia 102 bpm left axis deviation no acute ST or T wave changes patient with a chest x-ray remarkable for cardiomegaly, vascular congestion pulmonary edema and small bibasilar effusions favoring cardiac decompensation superimposed pneumonia not completely excluded Patient was elevated d-dimer of 698 CT of the chest is remarkable for negative pulmonary embolism, as cardiomegaly with interstitial edema and bilateral effusions favoring cardiac decompensation, there is abnormal right hilar adenopathy with subsequent right middle lobe segmental atelectasis, also incompletely visualized mesenteric root adenopathy rule out primary versus metastatic malignancy, there is also left lobe peripheral masslike opacity, incidental fatty liver, splenomegaly, and evidence for old granulomatous disease. Patient with normal troponin and BNP is elevated at 3260 chemistry essentially normal CBC essentially normal Patient is given DuoNeb treatment, albuterol treatment, Solu-Medrol 125 IV also Rocephin 1 g IV she is given 40 of Lasix she is feeling better. I've discussed the case briefly with Dr. Tolentino recreation program coordinator for Dr. Cowan it is felt that the patient would benefit with the transfer to [facility] so that the patient's chest CT findings concerning for malignancy can be further worked up as well as continuing workup of her congestive heart failure. I've discussed the patient's case with Dr. Marx at [facility] have gone over pertinent labs and radiology findings he has excepted the patient for transfer. Impression 1 congestive heart failure 2 shortness of breath history abnormal CT of the chest . - Departure Departure Disposition: Transfer ([facility]) Clinical Impression: Shortness of breath, Abnormal chest CT Congestive heart failure Qualifiers: Heart failure type: unspecified Heart failure chronicity: unspecified Qualified Code(s): I50.9 - Heart failure, unspecified Condition: Fair Critical Care Time: No Referrals: LANA COWAN [Primary Care Provider] - Instructions: Heart Failure
[2018-10-01 14:34] LABS: BASOPHIL % 0.2 % (0.0-0.4); Basophil (Absolute #) 0.01 (0-0.4); Eosinophil (Absolute #) 0.12 (0-0.5); Granulocyte Absolute (ANC) 3.76 (1.4-6.9); Granulocytes % 63.8 % (36.0-66.0); Hematocrit 48.7 % (35-47); Hemoglobin 15.8 gm/dl (12.0-16.0); Lymphocyte (Absolute #) 1.43 (1.0-4.6); Lymphocytes % 24.2 % (24.0-44.0); Mean Cell Volume 89.5 fl (78-100); Mean Corpuscular Hgb Concent. 32.4 g/dl (32-36); Mean Platelet Volume 11.3 fl (6-9.5); Monocyte (Absolute #) 0.58 (0.0-1.3); Monocytes % 9.8 % (0.0-12.0); Platelet Count 255 K/mm3 (150-450); Red Blood Count 5.44 M/mm3 (4.1-5.4); White Blood Count 5.9 K/mm3 (4.0-10.5)
--- NOTE | 2018-10-01 14:38 | XRAY ---
Indication: Short of breath. Comparison: September 09, 2016. Portable chest again demonstrates cardiomegaly, vascular congestion, pulmonary edema, and small bibasilar effusions favoring cardiac decompensation. Superimposed pneumonia not completely excluded.
[2018-10-01] MEDS ORDERED: Lasix 40 MG/4 ML IV ONE (14:42)
[2018-10-01] MEDS ORDERED: Lasix 40 MG/4 ML ONE (14:53)
[2018-10-01 14:54] LABS: Lactic Acid 1.8 (0.4-2.0); VBG BASE EXCESS 0.2 (-2.0-2.0); VBG CARBOXYHEMOGLOBIN 4.2 % T HGB (0.0-6.9); VBG HCO3- 23.8 meq/L (22-28); VBG HEMOGLOBIN 16.3; VBG O2 SATURATION 93.1 (95-100); VBG POTASSIUM 3.8 (3.5-5.1); VBG pH 7.44 (7.32-7.42)
[2018-10-01 15:00] LABS: ALBUMIN 4.4 g/dL (3.5-5.0); ALKALINE PHOSPHATASE 82 U/L (38-126); ANION GAP 15.4 MEQ/L (5-15); BLOOD UREA NITROGEN 9 mg/dL (7-17); CHLORIDE 104 mmol/L (98-107); Calcium 9.8 mg/dL (8.4-10.2); Carbon Dioxide 24 mmol/L (22-30); Creatinine 1 0.62 mg/dL (0.52-1.04); Glucose 114 mg/dL (74-106); NT PRO BNP 3260 pg/mL (0-1800); Potassium 3.6 mmol/L (3.5-5.1); SGOT/AST 27 U/L (14-36); SGPT/ALT 16 U/L (0-35); SODIUM 140 mmol/L (137-145); Total Protein 8.4 g/dL (6.3-8.2)
[2018-10-01] MEDS ORDERED: PROVENTIL 2.5 MG/3 ML NEB IH ONE ×2 (15:25→15:35)
[2018-10-01] MEDS ORDERED: ROCEPHIN 1 Gm-D5w 50 ml Bag** 1 G/50 ML IVPB IV STA (15:52)
[2018-10-01] MEDS ORDERED: solu-MEDROL 125 MG IV ONE (15:52)
[2018-10-01] MEDS ORDERED: ROCEPHIN 1 Gm-D5w 50 ml Bag** 1 G/50 ML IVPB IV ONE (15:54)
[2018-10-01] MEDS ORDERED: solu-MEDROL 125 MG ONE (15:54)
--- NOTE | 2018-10-01 17:15 | XRAY ---
Indication: Short of breath. Elevated d-dimer. Multiple contiguous axial images obtained through the chest using on 100 cc Isovue-370 contrast and PE protocol. Comparison: None There is satisfactory opacification of the pulmonary arteries to include the lobar and segmental branches. No pulmonary embolus. Heart is enlarged. Aorta is normal in course and caliber. Multiple calcified mediastinal and bilateral hilar calcified nodes. Prominent right hilar adenopathy measuring at least 5.2 x 4.2 x 3.7 cm encases and slightly narrows the right middle and lesser degree right lower lobe pulmonary arteries. Examination of the lung parenchyma demonstrates moderate bilateral pleural effusions in the dependent portion with mild interstitial edema. There is right middle lobe subsegmental atelectasis. 1.4 x 1.9 x 1.7 cm subpleural masslike opacity in the posterior lateral left lower lobe. Right middle lobe calcified granuloma. Bony thorax intact with osteophytes throughout the spine. No pathologic axillary lymphadenopathy. Limited upper abdomen demonstrates mild diffuse fatty liver and 14.7 cm splenomegaly. Also incompletely visualized prominent mesenteric root adenopathy, largest 1.4 x 3.3 cm. Impression: 1. Negative pulmonary embolus. 2. Cardiomegaly with interstitial edema and bilateral effusions favoring cardiac decompensation. 3. Abnormal right hilar adenopathy with subsequent right middle lobe subsegmental atelectasis. Also incompletely visualized mesenteric root adenopathy. Rule out primary versus metastatic malignancy. 4. Left lobe peripheral masslike opacity. 5. Incidental fatty liver, splenomegaly, and evidence for old granulomatous disease. CTDI 23.69
[2018-10-01 18:09] VITALS: BP 156/94; PULSE 88
[2018-10-01 18:15] VITALS: O2SAT 93
== END 2018-10-01 18:52 | disposition short-term general hospital (02) ==
LOC: ED 13:55
DX: R06.02 Shortness of breath (principal); R91.8 Other nonspecific abnormal finding of lung field; E11.9 Type 2 diabetes mellitus without complications; Z87.442 Personal history of urinary calculi; Z79.82 Long term (current) use of aspirin; Z86.73 Personal history of transient ischemic attack (TIA), and cerebral infarction without residual deficits
CPT/HCPCS: 36000; 36415; 71045; 71260; 80053; 82805; 83605; 83880; 84484; 85025; 85379; 87040; 93005; 93041; 94150; 94640; 96365; 96374; 96375; 99285; J0696; J1940; J2930; J7609; A9270-GY

== ENCOUNTER 2021-12-28 10:54 | Day surgery (SDC) | payer MEDICARE ==
[~2021-12-28 10:54] MED LIST: ACETAZOLAMIDE 250 MG TABLET PO ONE; Ak-Dilate OPHTHALMIC*** 1.065 ML, Cyclogyl 1% OPHTH SOL 1.065 ML, GATIFLOXACIN 0.5% OPH... OP ONE; BETADINE 5% OPHTHALMIC 30 ML OP ONE; Lactated Ringers 1,000 ML IV SCH; NON-FORMULARY ITEM OP ONE; TETRACAINE 0.5% STERI-UNIT SOL OP ONE; Zofran 4 MG/2 ML VIAL IV PRN; cefUROXime sodium 0.005 GM in Sodium Chloride Flush 30 ML*** 0.5 ML IJ ONE
[2021-12-28] MEDS ORDERED: Lactated Ringers 1,000 ML IV ONE (11:37)
[2021-12-28 12:51] LABS: INR 1.03 (0.8-3.0); PROTIME 10.9 SECONDS (9.4-12.5)
[2021-12-28] MEDS ORDERED: NON-FORMULARY ITEM IJ ONE (13:00)
[2021-12-28] MEDS ORDERED: DIPRIVAN 200 MG/20 ML IV ONE (13:10)
[2021-12-28 13:56] VITALS: BP 157/91; PULSE 76; O2SAT 95
[2021-12-28] MEDS ORDERED: Epinephrine Preservative Free 1 MG/ML INTRAOP ONE (16:00)
[2021-12-28] MEDS ORDERED: LIDOCAINE HCL 1% 50 MG/5 ML VL PF IJ ONE (16:00)
== END 2021-12-28 14:05 | disposition home or self-care (01) ==
LOC: SDC 10:54
PROVIDERS: ATTEND Ophthalmology
DX: H25.812 Combined forms of age-related cataract, left eye (principal); Z79.01 Long term (current) use of anticoagulants
CPT/HCPCS: 36415; 85610; 99100; C1780; J0171; J2001; J2704; A9270-GY

== ENCOUNTER 2022-04-27 16:17 | Observation (INO) | payer MEDICARE, SELFPAY ==
--- NOTE | 2022-04-27 17:08 | XRAY ---
Indication: Pain following fall. Comparison: None 3 view left hand demonstrates osteopenia, mild/moderate degenerative changes all IP/MCP joints/base 1st metacarpal, and radiocarpal joint space loss. No other bony, articular, or soft tissue abnormalities.
--- NOTE | 2022-04-27 17:10 | XRAY ---
Indication: Pain and swelling following fall. Comparison: None 3 view right knee demonstrates displaced comminuted patella fracture with small hemarthrosis and anterior soft tissue swelling. Elsewhere osteopenia, small tibial tuberosity spurring, and small fabella.
--- NOTE | 2022-04-27 17:19 | ERPHSYRPT ---
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 Bruising/ swelling noted to lateral knee and abrasion noted to [address] [place] [id number] Physician History: This is an 82-year-old white female who fell approximately 3 hours prior to arrival and noticed significant swelling and pain present at the right anterior knee. She also has abrasion to her left hand. Patient was brought in by ambulance service because of the fall. She has trouble bearing weight. Occurred: just prior to arrival Reason for Fall: tripped Injuries/Pain Location: upper extremity (Left hand dorsal aspect abrasion), lower extremity (Right anterior knee) Loss of Consciousness: no loss of consciousness Quality: aching Severity of Pain-Max: moderate Severity of Pain-Current: moderate Modifying Factors: Improves With: movement Associated Symptoms (Fall): extremity injury (Abrasion dorsal aspect left hand. Swelling and pain to the right anterior knee Region) Allergies/Adverse Reactions: No Known Drug Allergies Allergy (Unverified 04/27/22 16:26) Home Medications: Aspirin 81 mg PO DAILY 09/09/16 [History] Lutein [Natural Lutein] 20 mg PO 12/28/21 [History] Hx Tetanus, Diphtheria Vaccination/Date Given: No Hx Influenza Vaccination/Date Given: Yes Hx Pneumococcal Vaccination/Date Given: No Travel Risk - International Travel Have you traveled outside of the country in past 3 weeks: No - Coronavirus Screening Are you exhibiting any of the following symptoms?: No Close contact with a COVID-19 positive Pt in past 14-21 Days: No - Vaccine Status Have you recieved a Covid-19 vaccination: Yes Welfare Administrator: Moderna - Vaccination Dates Date of 2cond Vaccination (if applicable): 09/24/20 - Review of Systems Constitutional: No Symptoms Eyes: No Symptoms Ears, Nose, & Throat: No Symptoms Respiratory: No Symptoms Cardiac: No Symptoms Abdominal/Gastrointestinal: No Symptoms Genitourinary Symptoms: No Symptoms Musculoskeletal: Injury (Right anterior knee) Skin: Other (Abrasion dorsal aspect right hand) Neurological: No Symptoms Psychological: No Symptoms Endocrine: No Symptoms Hematologic/Lymphatic: No Symptoms Immunological/Allergic: No Symptoms All Other Systems: Reviewed and Negative - Past Medical History Pertinent Past Medical History: Yes Neurological History: Stroke ENT History: Cataracts Cardiac History: No Pertinent History Respiratory History: No Pertinent History Endocrine Medical History: No Pertinent History Musculoskeletal History: No Pertinent History GI Medical History: No Pertinent History History: Other Psycho-Social History: No Pertinent History Female Reproductive Disorders: No Pertinent History Other Medical History: Kindney stones. - Past Surgical History Past Surgical History: Yes Neuro Surgical History: No Pertinent History Cardiac: No Pertinent History Respiratory: No Pertinent History Gastrointestinal: Cholecystectomy, Hernia Repair Genitourinary: Kidney Surgery Musculoskeletal: No Pertinent History Female Surgical History: No Pertinent History Other Surgical History: gangene gb - Social History Smoking Status: Former smoker How long have you smoked: 2 years Exposure to second hand smoke: Yes Drug Use: none Patient Lives Alone: Yes - Nursing Vital Signs Nursing Vital Signs: Initial Vital Signs Temperature 98.2 F 04/27/22 16:37 Pulse Rate 83 04/27/22 16:37 Respiratory Rate 18 04/27/22 16:37 Blood Pressure 170/92 04/27/22 16:37 O2 Sat by Pulse Oximetry 96 04/27/22 16:37 Pain Scale Pain Intensity 5 - [place] Coma Score Best Eye Response (Zaheer): (4) open spontaneously Best Verbal Response ([place]): (5) oriented Best Motor Response ([place]): (6) obeys commands [place] Total: 15 - Physical Exam General Appearance: no apparent distress, alert, anxiety Head Injury: no evidence of injury Eye Exam: PERRL/EOMI, eyes nml inspection ENT Exam: airway nml, nml ext.inspection, No evidence of ENT injury, No dental injury Neck Exam: supple, trachea midline, full range of motion, normal alignment, normal inspection Respiratory/Chest Exam: normal breath sounds, No chest tenderness, No respiratory distress Gastrointestinal Exam: soft, normal bowel sounds, No tenderness Rectal Exam: not done Back Exam: normal inspection, normal range of motion, CVA tenderness Extremity Exam: evidence of injury (Bruising swelling right anterior knee. 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 X-ray of right knee shows a transversely oriented minimally displaced patellar fracture. Counseled pt/family regarding: diagnosis, need for follow-up, rad results - Departure Departure Disposition: Home Clinical Impression: Fall with injury, Patellar fracture Condition: Stable Critical Care Time: No Referrals: STACY TIM DO [Primary Care Provider] - Follow up/PCP as directed Additional Instructions: Nonweightbearing. Follow-up tomorrow morning at 8:00 at the [facility] orthopedic clinic. You do not need an appointment to be evaluated. Prescriptions: Oxycodone HCl/Acetaminophen [Percocet 5-325 mg Tablet] 1 each PO Q8H PRN PRN #6 tablet MDD 3 PRN Reason: Moderate To Severe Pain
[2022-04-27] MEDS ORDERED: PERCOCET TABLET 5/325MG PO STA (17:53)
[2022-04-27] MEDS ORDERED: PERCOCET TABLET 5/325MG ONE (18:39)
[2022-04-27 20:53] LABS: INFLUENZA A NEGATIVE (NEGATIVE); INFLUENZA B NEGATIVE (NEGATIVE); RESPIRATORY SYNCTIAL VIRUS NEGATIVE (Negative); SARS-CoV-2 Xpert Express NEGATIVE (NEGATIVE)
[2022-04-27] MEDS ORDERED: Zofran 4 MG/2 ML VIAL IV PRN (22:19)
[2022-04-27] MEDS ORDERED: TYLENOL 325 MG PO PRN (22:19)
[2022-04-27] MEDS ORDERED: ZOFRAN ODT 4 MG PO PRN (22:23)
[2022-04-28] MEDS: PERCOCET TABLET 5/325MG PO PRN ×2 (04:16→09:36)
[2022-04-28 05:14] LABS: Hematocrit 40.2 % (35-47); Hemoglobin 13.3 g/dL (12.0-16.0); Mean Cell Volume 91.6 fL (78-100); Mean Corpuscular Hemoglobin 30.3 pg (26-32); Mean Corpuscular Hgb Concent. 33.1 g/dL (32-36); Mean Platelet Volume 9.9 fL (7.5-11.0); Platelet Count 239 x10^3/uL (150-450); Red Blood Count 4.39 x10^6/uL (4.1-5.4); Red Cell Distribution Width 13.2 % (11.5-14.0); White Blood Count 9.2 x10^3/uL (4.0-10.5)
[2022-04-28 05:44] LABS: ANION GAP 10.1 MEQ/L (5-15); BLOOD UREA NITROGEN 10 mg/dL (7-17); CHLORIDE 103 mmol/L (98-107); Calcium 8.7 mg/dL (8.4-10.2); Carbon Dioxide 25 mmol/L (22-30); EST GLOMERULAR FILTRATION RATE > 60.0 ML/MIN; Glucose 113 mg/dL (74-106); Potassium 3.9 mmol/L (3.5-5.1); SODIUM 135 mmol/L (137-145)
--- NOTE | 2022-04-28 08:25 | PCM.HP ---
History of Present Illness - Chief Complaint Chief Complaint: Right patella fracture History of Present Illness: is a 82 year old female patient of Dr Quinn who slipped and fell in her home last evening, she uses a walker but had stepped away from her walker and lost her balance and fell. no syncope, did not hit her head, had significant pain in the right knee and was unable to ambulate, came to ER and found to have patella fracture. felt unsafe to return to her home and live alone with steps etc. - Review of Systems Constitutional: No Symptoms Respiratory: No Cough, No Short Of Breath Cardiac: No Chest Pain, No Edema, No Syncope Musculoskeletal: Fall, Injury Skin: No Rash All Other Systems: Reviewed and Negative Medications & Allergies Home Medications: Home Medication List Lutein [Natural Lutein] 20 mg PO DAILY 12/28/21 [History Confirmed 04/27/22] Aspirin EC 325 mg [Ecotrin 325 MG] 325 mg PO DAILY 04/27/22 [History Confirmed 04/27/22] Allergies/Adverse Reactions: Allergies Allergy/AdvReac Type Severity Reaction Status Date / Time No Known Drug Allergies Allergy Unverified 04/27/22 16:26 - Past Medical History Past Medical History: Yes Neurological History: Stroke ENT History: Cataracts Cardiac History: No Pertinent History Respiratory History: No Pertinent History Endocrine Medical History: No Pertinent History Musculoskelatal History: No Pertinent History GI Medical History: No Pertinent History History: Other Pyscho-Social History: No Pertinent History Reproductive Disorders: No Pertinent History Comment: Kindney stones. - Female History Are you now?: No - Past Surgical History Past Surgical History: Yes Neuro Surgical History: No Pertinent History Cardiac History: No Pertinent History Respiratory Surgery: No Pertinent History GI Surgical History: Cholecystectomy, Hernia Repair Genitourinary Surgical Hx: Kidney Surgery Musculskeletal Surgical Hx: No Pertinent History Female Surgical History: No Pertinent History Other Surgical History: gangene gb - Social History Smoking Status: Never smoker How long have you smoked: 2 years Exposure to second hand smoke: No Alcohol: None Drug Use: none - Physical Exam Vital Signs: Vital Signs - 24 hr Temp Pulse Resp BP Pulse Ox 04/28/22 07:32 97.7 F 74 17 139/73 92 L 04/28/22 03:58 97.7 F 76 17 149/77 93 L 04/27/22 22:57 97.5 F 93 H 19 179/81 93 L 04/27/22 18:30 80 18 150/84 96 04/27/22 17:52 96 04/27/22 16:37 98.2 F 83 18 170/92 96 General Appearance: no apparent distress Neurologic Exam: alert, oriented x 3 Respiratory Exam: normal breath sounds, lungs clear, No respiratory distress Cardiovascular Exam: regular rate/rhythm, normal heart sounds, normal peripheral pulses Gastrointestinal/Abdomen Exam: soft, normal bowel sounds, No tenderness, No mass Extremity Exam: other (right knee in immobilizer) Wound Assessment: Skin/Wound Assessment Wound/Incision Assessment Start: 04/27/22 23:13 Text: Status: Active Freq: Q6H Protocol: Document 04/28/22 06:00 CARMEN (Rec: 04/28/22 06:35 CARMEN [id number]) Wound Photo Photo Taken No Results - Labs Lab/Micro Results: Lab Results-Last 24 Hours 04/27/22 04/28/22 04/28/22 Range/Units 20:15 05:08 05:08 WBC 9.2 (4.0-10.5) x10^3/uL RBC 4.39 (4.1-5.4) x10^6/uL Hgb 13.3 (12.0-16.0) g/dL Hct 40.2 (35-47) % MCV 91.6 (78-100) fL MCH 30.3 (26-32) pg MCHC 33.1 (32-36) g/dL RDW 13.2 (11.5-14.0) % Plt Count 239 (150-450) x10^3/uL MPV 9.9 (7.5-11.0) fL Sodium 135 L (137-145) mmol/L Potassium 3.9 (3.5-5.1) mmol/L Chloride 103 (98-107) mmol/L Carbon Dioxide 25 (22-30) mmol/L Anion Gap 10.1 (5-15) MEQ/L BUN 10 (7-17) mg/dL Creatinine 0.70 (0.52-1.04) mg/dL Estimated GFR > 60.0 ML/MIN Glucose 113 H (74-106) mg/dL Calcium 8.7 (8.4-10.2) mg/dL Prealbumin (17.6-36.0) mg/dL Influenza Type A Ag NEGATIVE (NEGATIVE) Influenza Type B Ag NEGATIVE (NEGATIVE) RSV (PCR) NEGATIVE (Negative) SARS-CoV-2 (PCR) NEGATIVE (NEGATIVE) 04/28/22 Range/Units 05:08 WBC (4.0-10.5) x10^3/uL RBC (4.1-5.4) x10^6/uL Hgb (12.0-16.0) g/dL Hct (35-47) % MCV (78-100) fL MCH (26-32) pg MCHC (32-36) g/dL RDW (11.5-14.0) % Plt Count (150-450) x10^3/uL MPV (7.5-11.0) fL Sodium (137-145) mmol/L Potassium (3.5-5.1) mmol/L Chloride (98-107) mmol/L Carbon Dioxide (22-30) mmol/L Anion Gap (5-15) MEQ/L BUN (7-17) mg/dL Creatinine (0.52-1.04) mg/dL Estimated GFR ML/MIN Glucose (74-106) mg/dL Calcium (8.4-10.2) mg/dL Prealbumin 17.68 (17.6-36.0) mg/dL Influenza Type A Ag (NEGATIVE) Influenza Type B Ag (NEGATIVE) RSV (PCR) (Negative) SARS-CoV-2 (PCR) (NEGATIVE) - Radiology Impressions Radiology Exams & Impressions: Radiology Procedures Category Date Time Status HAND (MINIMUM 3 VIEWS) Stat Exams 04/27/22 16:56 Completed KNEE (3 VIEWS) Stat Exams 04/27/22 16:31 Completed Assessment/Plan (1) Patellar fracture Current Visit: Yes Status: Acute Assessment & Plan: patient requesting rehab/long-term stay due to fear of trying to care for herself and unable to bear weight and ambulate, has steps to get in to her home. Code(s): S82.009A - UNSP FRACTURE OF UNSP PATELLA, INIT FOR CLOS FX (2) Fall Current Visit: Yes Status: Acute Code(s): W19.XXXA - UNSPECIFIED FALL, INITIAL ENCOUNTER
[2022-04-28] MEDS: Ecotrin 325 MG PO SCH (09:36)
[2022-04-28] MEDS: ENOXAPARIN SODIUM SQ SCH (09:36)
[2022-04-28] MEDS ORDERED: NON-FORMULARY ITEM (Lutein [Natural Lutein] 20 MG Capsule) PO SCH (10:00)
--- NOTE | 2022-04-28 12:14 | XRAY ---
Indication: prison placement. Comparison: October 01, 2018 Portable chest demonstrates minimal bilateral mid to lower lung fibrosis/scarring. Blunting of both costophrenic angles favors tiny pleural effusions/thickening. Heart not enlarged for AP portable technique. Incidental mediastinal and hilar calcified nodes. Bony thorax intact again with osteopenia, degenerative changes, and mild dextroscoliosis. Impression: Tiny nonspecific bibasilar pleural effusions/thickening. Chronic bony findings and old granulomatous disease.
[2022-04-28] MEDS ORDERED: MEDICATION INTERVENTION MC SCH (16:00)
[2022-04-28] MEDS ORDERED: ZOFRAN ODT 4 MG PO PRN (16:14)
[2022-04-29 04:56] LABS: Basophil (Absolute #) 0.01 x10^3/uL (0-0.4); Eosinophil % 3.2 % (0.00-5.0); Eosinophil (Absolute #) 0.23 x10^3/uL (0-0.5); Hematocrit 38.3 % (35-47); Hemoglobin 12.4 g/dL (12.0-16.0); Lymphocyte (Absolute #) 1.13 x10^3/uL (1.0-4.6); Lymphocytes % 15.8 % (24.0-44.0); Mean Cell Volume 92.1 fL (78-100); Mean Corpuscular Hemoglobin 29.8 pg (26-32); Mean Corpuscular Hgb Concent. 32.4 g/dL (32-36); Monocyte (Absolute #) 0.93 x10^3/uL (0.0-1.3); Neutrophil % 67.5 % (36.0-66.0); Platelet Count 238 x10^3/uL (150-450); Red Blood Count 4.16 x10^6/uL (4.1-5.4); White Blood Count 7.1 x10^3/uL (4.0-10.5)
[2022-04-29 05:22] LABS: ANION GAP 8.8 MEQ/L (5-15); BLOOD UREA NITROGEN 11 mg/dL (7-17); CHLORIDE 101 mmol/L (98-107); Calcium 8.3 mg/dL (8.4-10.2); Carbon Dioxide 27 mmol/L (22-30); Creatinine 1 0.78 mg/dL (0.52-1.04); EST GLOMERULAR FILTRATION RATE > 60.0 ML/MIN; Glucose 107 mg/dL (74-106); Potassium 3.8 mmol/L (3.5-5.1); SODIUM 133 mmol/L (137-145)
[2022-04-29] MEDS: ENOXAPARIN SODIUM SQ SCH (10:11)
[2022-04-29] MEDS: Ecotrin 325 MG PO SCH (10:11)
[2022-04-29 11:42] VITALS: BP 166/85; PULSE 75; O2SAT 96
== END 2022-04-29 16:15 ==
LOC: ED 16:17 → MED SURG 22:14
PROVIDERS: ADMIT Family Medicine; ATTEND Family Medicine
DX: S82.001A Unspecified fracture of right patella, initial encounter for closed fracture (principal); W19.XXXA Unspecified fall, initial encounter; Z79.899 Other long term (current) drug therapy; Z20.828 Contact with and (suspected) exposure to other viral communicable diseases
CPT/HCPCS: 0241U; 36415; 71045; 73130; 73562; 80048; 84134; 85025; 85027; 97161; 99285; 99224; G0378; J1650; L1830; Q0162; A9270-GY

== ENCOUNTER 2024-02-26 20:03 | Inpatient (IN) | payer MEDICARE ==
--- NOTE | 2024-02-26 20:35 | ERPHSYRPT ---
- History of Present Illness Time Seen by Provider: 02/26/24 20:34 Source: patient Exam Limitations: no limitations Patient Subjective Stated Complaint: c/o of shortness of breath Triage Nursing Assessment: Pt brought to ED by ambulance with c/o of shortness of breath. Pt was placed on 4L nasal cannula per EMS. pt states she has been feeling SOB the past 2 days and felt worse today when she tried to walk to the bathroom. Pt is diaphoretic, hypertensive, tachycardic, and wheezing breath sounds heard upon arrival. lung sounds clear in lower lobes and wheezing subsided towards end of triage. Pt doesn't appear to be in any distress at this time. Physician History: This is an 84-year-old white female patient who was brought into the emergency department by the paramedics. Her primary care provider is Dr. Sims. She has had shortness of breath for 2 days. Her symptoms seem to be worse when she is exerting herself. She becomes diaphoretic, hypertensive and tachycardic and there is wheezing present. Patient has had a CVA in the past. Patient denies chest pain. She denies abdominal pain. Timing/Duration: day(s) (2) Activities at Onset: activity (Symptoms worsen with exertion) Severity of Dyspnea-Max: moderate Severity of Dyspnea-Current: mild (To moderate without exertion) Possible Cause: no prior episodes Modifying Factors: Improves With: activity (Worsens), exertion (Worsens), rest (Proves) Associated Symptoms: sweating, No chest pain/discomfort Allergies/Adverse Reactions: No Known Drug Allergies Allergy (Verified 02/26/24 20:23) Home Medications: Aspirin EC 325 mg [Ecotrin 325 MG] 325 mg PO DAILY 04/27/22 [History] Hx Tetanus, Diphtheria Vaccination/Date Given: No Hx Influenza Vaccination/Date Given: Yes Hx Pneumococcal Vaccination/Date Given: No Travel Risk - International Travel Have you traveled outside of the country in past 3 weeks: No - Emerging Infectious Disease Are you exhibiting symptoms associated with any current EIDs: Yes Symptoms: Shortness of Breath - Review of Systems Constitutional: Weakness Eyes: No Symptoms Ears, Nose, & Throat: No Symptoms Respiratory: Dyspnea, Dyspnea on Exertion (HERNANDEZ), Wheezing (Exertion) Cardiac: No Symptoms Abdominal/Gastrointestinal: No Symptoms Genitourinary Symptoms: No Symptoms Musculoskeletal: No Symptoms Skin: No Symptoms Neurological: No Symptoms Psychological: No Symptoms Endocrine: No Symptoms Hematologic/Lymphatic: No Symptoms Immunological/Allergic: No Symptoms All Other Systems: Reviewed and Negative - Past Medical History Pertinent Past Medical History: Yes Neurological History: Stroke ENT History: Cataracts Cardiac History: No Pertinent History Respiratory History: No Pertinent History Endocrine Medical History: No Pertinent History Musculoskeletal History: No Pertinent History GI Medical History: No Pertinent History History: Other Psycho-Social History: No Pertinent History Female Reproductive Disorders: No Pertinent History Other Medical History: Kindney stones. - Past Surgical History Past Surgical History: Yes Neuro Surgical History: No Pertinent History Cardiac: No Pertinent History Respiratory: No Pertinent History Gastrointestinal: Cholecystectomy, Hernia Repair Genitourinary: Kidney Surgery Musculoskeletal: No Pertinent History Female Surgical History: No Pertinent History Other Surgical History: gangene gb - Social History Smoking Status: Never smoker How long have you smoked: 2 years Exposure to second hand smoke: No Drug Use: none Patient Lives Alone: Yes - Nursing Vital Signs Nursing Vital Signs: Initial Vital Signs Temperature 97.7 F 02/26/24 20:04 Pulse Rate 112 H 02/26/24 20:04 Respiratory Rate 16 02/26/24 20:04 Blood Pressure 157/101 02/26/24 20:04 O2 Sat by Pulse Oximetry 99 02/26/24 20:04 Pain Scale Pain Intensity 0 - Physical Exam General Appearance: mild distress, alert, anxiety Eye Exam: PERRL/EOMI, eyes nml inspection Ears, Nose, Throat Exam: hearing grossly normal, normal ENT inspection, normal pharynx Neck Exam: normal inspection, non-tender, supple, full range of motion Respiratory Exam: airway intact, diminished breath sounds (Bibasilar), No chest tenderness, No respiratory distress Cardiovascular/Chest Exam: normal heart sounds, normal peripheral pulses, irregular Abdominal/Gastrointestinal Exam: soft, normal bowel sounds, No tenderness Rectal Exam: not done Extremity Exam: non-tender, normal range of motion, normal inspection, normal capillary refill, no calf tenderness, pelvis stable Neurologic Exam: alert, oriented x 3, cooperative, plastic surgeon II-XII nml as tested, sensation nml Skin Exam: diaphoresis (Especially with exertion) Lymphatic Exam: No adenopathy SpO2 Interpretation: normal SpO2: 96 O2 Delivery: Nasal Cannula - Course Nursing assessment & vital signs reviewed: Yes EKG Interpreted by Me: RATE, A-fib, LAFB, NORMAL INTERVALS, Right Bundle Branch Block, Other (No acute ischemic changes on today's twelve-lead EKG. Patient's QTc is 488) Ordered Tests: Active Orders 24 hr Category Date Time Status [employer] STAT Care 02/26/24 20:40 Active EKG-ER Only STAT Care 02/26/24 20:39 Active IV Insertion STAT Care 02/26/24 20:39 Active Pulse Oximetry (ED) STAT Care 02/26/24 20:39 Active CHEST 1 VIEW (PORTABLE) Stat Exams 02/26/24 20:39 Taken BLOOD CULTURE Stat Lab 02/26/24 21:00 Received CBC W DIFF Stat Lab 02/26/24 20:56 Completed CMP Stat Lab 02/26/24 20:56 Completed CULTURE,URINE Stat Lab 02/26/24 22:14 Received Lactic Acid Stat Lab 02/26/24 20:55 Completed MAGNESIUM Stat Lab 02/26/24 20:56 Completed NT PRO BNPII Stat Lab 02/26/24 20:56 Completed TROPONIN Q4H Lab 02/26/24 20:56 Completed TROPONIN Q4H Lab 02/27/24 00:45 Ordered TROPONIN Q4H Lab 02/27/24 04:45 Ordered UA W/RFX UR CULTURE Stat Lab 02/26/24 22:14 Completed Respiratory Therapy Assessment DAILY RT 02/26/24 22:23 Active Medication Summary Generic Name Dose Route Start Last Admin Trade Name Freq PRN Reason Stop Dose Admin Sodium Chloride 1,000 mls @ 100 mls/hr 02/26/24 20:45 02/26/24 20:51 Sodium Chloride 0.9% 1000 Ml IV 03/27/24 20:44 100 mls/hr .Q10H FATOUMATA Administration Discontinued Medications Generic Name Dose Route Start Last Admin Trade Name Freq PRN Reason Stop Dose Admin Albuterol/Ipratropium Confirm 02/26/24 22:20 Ipratropium/Albuterol Sulfate 3 Ml Ampul.Neb Administered 02/26/24 22:21 Dose 3 ml IH .STK-MED ONE Albuterol/Ipratropium 3 ml 02/26/24 22:24 02/26/24 22:25 Ipratropium/Albuterol Sulfate 3 Ml Ampul.Neb IH 02/26/24 22:25 3 ml STAT ONE Administration Aspirin 325 mg 02/26/24 20:36 02/26/24 20:49 Aspirin 325 Mg Tablet.Ec PO 02/26/24 20:37 325 mg STAT ONE Administration Furosemide 40 mg 02/26/24 22:43 02/26/24 22:54 Furosemide 40 Mg/4 Ml Vial IV 02/26/24 22:44 40 mg STAT ONE Administration Furosemide Confirm 02/26/24 22:51 Furosemide 40 Mg/4 Ml Vial Administered 02/26/24 22:52 Dose 40 mg .ROUTE .STK-MED ONE Ceftriaxone Sodium 1 gm in 100 mls @ 200 mls/hr 02/26/24 22:43 02/26/24 23:01 Rocephin 1 Gm / 100 Ml Nacl IV 02/26/24 23:12 200 mls/hr STAT ONE 200 mls/hr Administration Lab/Rad Data: Laboratory Result Diagrams 02/26/24 20:56 02/26/24 20:56 Laboratory Results 02/26/24 02/26/24 02/26/24 Range/Units 22:14 21:00 20:56 WBC (3.98-10.04) x10^3/uL RBC (3.93-5.22) x10^6/uL Hgb (11.2-15.7) g/dL Hct (34.1-44.9) % MCV (79.4-94.8) fL MCH (25.6-32.2) pg MCHC (32.2-35.5) g/dL RDW (11.7-14.4) % Plt Count (182-369) x10^3/uL MPV (9.4-12.3) fL Gran % (34.0-71.1) % Immature Gran % (Auto) (0.001-0.429) % Nucleat RBC Rel Count (0.00-0.2) % Eos # (Auto) (0.04-0.36) x10^3/uL Immature Gran # (Auto) (0.001-0.031) x10^3u/L Absolute Lymphs (auto) (1.18-3.74) x10^3/uL Absolute Monos (auto) (0.24-0.86) x10^3/uL Absolute Nucleated RBC (0.00-0.012) x10^3u/L Lymphocytes % (19.3-51.7) % Monocytes % (4.7-12.5) % Eosinophils % (0.7-5.8) % Basophils % (0.1-1.2) % Absolute Granulocytes (1.56-6.13) x10^3/uL Basophils # (0.01-0.08) x10^3/uL Sodium (135-145) mmol/L Potassium (3.5-5.1) mmol/L Chloride (98-107) mmol/L Carbon Dioxide (22-30) mmol/L Anion Gap (5-15) MEQ/L BUN (7-17) mg/dL Creatinine (0.52-1.04) mg/dL Estimated GFR ML/MIN Glucose (74-106) mg/dL Lactic Acid (0.4-2.0) Calcium (8.4-10.2) mg/dL Magnesium (1.6-2.3) mg/dL Total Bilirubin (0.2-1.3) mg/dL AST (14-36) U/L ALT (0-35) U/L Alkaline Phosphatase (38-126) U/L Troponin I 0.020 (0.000-0.033) ng/mL NT-Pro-B Natriuret Pep (<300) pg/mL Serum Total Protein (6.3-8.2) g/dL Albumin (3.5-5.0) g/dL Urine Color Yellow (Yellow) Urine Appearance Turbid A (Clear) Urine pH 5.0 (4.6-8.0) Ur Specific [place] 1.025 (1.005-1.030) Urine Protein 100 A (Negative) Urine Glucose (UA) Negative (Negative) mg/dL Urine Ketones Negative (Negative) Urine Blood Negative (Negative) Urine Nitrite Negative (Negative) Urine Bilirubin Negative (Negative) Urine Urobilinogen 0.2 (0.2) mg/dL Ur Leukocyte Esterase Moderate A (Negative) U Hyaline Cast (Auto) 11-20 (0-2) /LPF Urine Microscopic RBC 11-20 A (0-5) /HPF Urine Microscopic WBC >100 A (0-5) /HPF Ur Epithelial Cells Moderate A (None Seen) /HPF Calcium Oxalate Crystal 11-25 A (None Seen) /HPF Triple Phos Crystals 6-10 A (None Seen) /HPF Urine Bacteria Many A (None Seen) /HPF Urine Culture Reflexed YES (NO) Influenza Type A Ag NEGATIVE (NEGATIVE) Influenza Type B Ag NEGATIVE (NEGATIVE) RSV (PCR) NEGATIVE (NEGATIVE) SARS-CoV-2 (PCR) NEGATIVE (NEGATIVE) 02/26/24 02/26/24 02/26/24 Range/Units 20:56 20:56 20:55 WBC 6.6 (3.98-10.04) x10^3/uL RBC 4.60 (3.93-5.22) x10^6/uL Hgb 13.6 (11.2-15.7) g/dL Hct 43.0 (34.1-44.9) % MCV 93.5 (79.4-94.8) fL MCH 29.6 (25.6-32.2) pg MCHC 31.6 L (32.2-35.5) g/dL RDW 13.5 (11.7-14.4) % Plt Count 231 (182-369) x10^3/uL MPV 10.8 (9.4-12.3) fL Gran % 76.1 H (34.0-71.1) % Immature Gran % (Auto) 0.5 H (0.001-0.429) % Nucleat RBC Rel Count 0.0 (0.00-0.2) % Eos # (Auto) 0.08 (0.04-0.36) x10^3/uL Immature Gran # (Auto) 0.03 (0.001-0.031) x10^3u/L Absolute Lymphs (auto) 0.80 L (1.18-3.74) x10^3/uL Absolute Monos (auto) 0.62 (0.24-0.86) x10^3/uL Absolute Nucleated RBC 0.00 (0.00-0.012) x10^3u/L Lymphocytes % 12.2 L (19.3-51.7) % Monocytes % 9.5 (4.7-12.5) % Eosinophils % 1.2 (0.7-5.8) % Basophils % 0.5 (0.1-1.2) % Absolute Granulocytes 4.99 (1.56-6.13) x10^3/uL Basophils # 0.03 (0.01-0.08) x10^3/uL Sodium 140 (135-145) mmol/L Potassium 4.3 (3.5-5.1) mmol/L Chloride 106 (98-107) mmol/L Carbon Dioxide 25 (22-30) mmol/L Anion Gap 13.8 (5-15) MEQ/L BUN 20 H (7-17) mg/dL Creatinine 0.86 (0.52-1.04) mg/dL Estimated GFR 67.4 ML/MIN Glucose 164 H (74-106) mg/dL Lactic Acid 1.5 (0.4-2.0) Calcium 9.9 (8.4-10.2) mg/dL Magnesium 1.9 (1.6-2.3) mg/dL Total Bilirubin 0.50 (0.2-1.3) mg/dL AST 22 (14-36) U/L ALT 17 (0-35) U/L Alkaline Phosphatase 69 (38-126) U/L Troponin I (0.000-0.033) ng/mL NT-Pro-B Natriuret Pep 8980 (<300) pg/mL Serum Total Protein 6.8 (6.3-8.2) g/dL Albumin 3.9 (3.5-5.0) g/dL Urine Color (Yellow) Urine Appearance (Clear) Urine pH (4.6-8.0) Ur Specific [place] (1.005-1.030) Urine Protein (Negative) Urine Glucose (UA) (Negative) mg/dL Urine Ketones (Negative) Urine Blood (Negative) Urine Nitrite (Negative) Urine Bilirubin (Negative) Urine Urobilinogen (0.2) mg/dL Ur Leukocyte Esterase (Negative) U Hyaline Cast (Auto) (0-2) /LPF Urine Microscopic RBC (0-5) /HPF Urine Microscopic WBC (0-5) /HPF Ur Epithelial Cells (None Seen) /HPF Calcium Oxalate Crystal (None Seen) /HPF Triple Phos Crystals (None Seen) /HPF Urine Bacteria (None Seen) /HPF Urine Culture Reflexed (NO) Influenza Type A Ag (NEGATIVE) Influenza Type B Ag (NEGATIVE) RSV (PCR) (NEGATIVE) SARS-CoV-2 (PCR) (NEGATIVE) - Progress Progress: improved, re-examined Air Movement: fair Progress Note: 02/26/24 22:45 My medical decision making and the assignment of moderate to high complexity is based on review of the patient's past medical history, review the patient's medication list, review of the patient's drug allergy list, history present illness and physical findings on examination. The workup includes placement of intravenous line, chest x-ray, low rate intravenous fluid, EKG, troponin level, BNP, chest x-ray, urinalysis, CBC, CMP, viral swabs, monotest. Differential diagnosis includes but is not limited to viral illness, pneumonia, urinary tract infection, CHF exacerbation, myocardial infarction, arrhythmias 02/26/24 22:56 I interpreted the patient's laboratory data results. Based on the laboratory data results, the patient has a significant urinary tract infection. In addition she has clinical evidence, radiographic and laboratory data evidence for CHF. I interpreted the patient's preliminary chest x-ray report. There appears to be right perihilar/lower lobe infiltrate with a small left base pleural effusion. Blood Culture(s) Obtained: Yes Antibiotics given: Yes Counseled pt/family regarding: lab results, diagnosis, rad results - Departure Departure Disposition: Observation Clinical Impression: Right pulmonary infiltrate on CXR, Pleural effusion, left, CHF (congestive heart failure), UTI (urinary tract infection) Condition: Fair Critical Care Time: No Referrals: STACY TIM DO [Primary Care Provider] - Follow up/PCP as directed Instructions: Heart Failure
[2024-02-26] MEDS ORDERED: Sodium Chloride 0.9% 1000 ML 1,000 ML ONE (20:48)
[2024-02-26] MEDS: Ecotrin 325 MG PO ONE (20:49)
[2024-02-26] MEDS: Sodium Chloride 0.9% 1000 ML 1,000 ML IV SCH (20:51)
[2024-02-26 21:11] LABS: Absolute Neutrophil Ct (ANC) 4.99 x10^3/uL (1.56-6.13); BASOPHIL % 0.5 % (0.1-1.2); Basophil (Absolute #) 0.03 x10^3/uL (0.01-0.08); Eosinophil % 1.2 % (0.7-5.8); Eosinophil (Absolute #) 0.08 x10^3/uL (0.04-0.36); Hemoglobin 13.6 g/dL (11.2-15.7); IMMATURE GRAN # 0.03 x10^3u/L (0.001-0.031); IMMATURE GRAN % 0.5 % (0.001-0.429); Lymphocytes % 12.2 % (19.3-51.7); Mean Cell Volume 93.5 fL (79.4-94.8); Mean Corpuscular Hemoglobin 29.6 pg (25.6-32.2); Mean Corpuscular Hgb Concent. 31.6 g/dL (32.2-35.5); Mean Platelet Volume 10.8 fL (9.4-12.3); Monocyte (Absolute #) 0.62 x10^3/uL (0.24-0.86); Monocytes % 9.5 % (4.7-12.5); Neutrophil % 76.1 % (34.0-71.1); Platelet Count 231 x10^3/uL (182-369); Red Cell Distribution Width 13.5 % (11.7-14.4); White Blood Count 6.6 x10^3/uL (3.98-10.04)
[2024-02-26 21:34] LABS: ALBUMIN 3.9 g/dL (3.5-5.0); ANION GAP 13.8 MEQ/L (5-15); BILIRUBIN,TOTAL 0.5 mg/dL (0.2-1.3); Calcium 9.9 mg/dL (8.4-10.2); Creatinine 1 0.86 mg/dL (0.52-1.04); EST GLOMERULAR FILTRATION RATE 67.4 ML/MIN; MAGNESIUM 1.9 mg/dL (1.6-2.3); Potassium 4.3 mmol/L (3.5-5.1); Total Protein 6.8 g/dL (6.3-8.2)
[2024-02-26 21:48] LABS: INFLUENZA A NEGATIVE (NEGATIVE); INFLUENZA B NEGATIVE (NEGATIVE); RESPIRATORY SYNCTIAL VIRUS NEGATIVE (NEGATIVE); SARS-CoV-2 Xpert Express NEGATIVE (NEGATIVE)
[2024-02-26] MEDS ORDERED: DUONEB 0.5-3 MG/3 ml Neb IH ONE (22:20)
[2024-02-26] MEDS: DUONEB 0.5-3 MG/3 ml Neb IH ONE (22:25)
[2024-02-26 22:39] LABS: ADD URINE CULTURE? YES (NO); Appearance Turbid (Clear); Bacteria Many /HPF (None Seen); Bilirubin Negative (Negative); Blood Negative (Negative); Epithelial Cells Moderate /HPF (None Seen); Glucose, Urine Negative (Negative); Ketones Negative (Negative); Leukocyte Esterase Moderate (Negative); Nitrite Negative (Negative); Protein,Urine Dip 100 (Negative); Specific Gravity 1.025 (1.005-1.030); Urobilinogen 0.2 mg/dL (0.2); WBC >100 /HPF (0-5)
[2024-02-26] MEDS ORDERED: Lasix 40 MG/4 ML ONE (22:51)
[2024-02-26] MEDS: Lasix 40 MG/4 ML IV ONE (22:54)
[2024-02-26] MEDS: ROCEPHIN 1 GM / 100 ML NaCl 1 GM/100 ML IVPB IV ONE (23:01)
[2024-02-27] MEDS ORDERED: Zofran 4 MG/2 ML VIAL IV PRN (00:15)
[2024-02-27] MEDS ORDERED: TYLENOL 325 MG PO PRN (00:15)
[2024-02-27] MEDS: Lasix 40 MG/4 ML IV SCH ×3 (01:23→21:05)
[2024-02-27] MEDS: Sodium Chloride 0.9% 1000 ML 1,000 ML IV SCH (01:25)
[2024-02-27] MEDS ORDERED: DUONEB 0.5-3 MG/3 ml Neb IH PRN (02:06)
--- NOTE | 2024-02-27 02:44 | PCM.HP ---
History of Present Illness - Chief Complaint Chief Complaint: "I was quivering" Date: 02/27/24 History of Present Illness: 84 y/o F with h/o CVA, who presents with dyspnea. Patient is somewhat difficult historian; initially only states that she didn't feel well for a few days, but could not explain further. Eventually described having a quivering in her stomach, then said this quivering is when she is short of breath with exertion. It appears she has had progressive dyspnea, particularly with exertion, for the past few days. She denies fevers, chest pain, and has only a mild non-productive cough. She was unaware of any edema, but states someone told her her legs were swollen. Denies h/o dyspnea. She was placed on 4L oxygen prior to arrival to ED; her SpO2 is 98% on that. - Review of Systems All Other Systems: Reviewed and Negative Medications & Allergies Home Medications: Home Medication List Aspirin EC 325 mg [Ecotrin 325 MG] 325 mg PO DAILY 04/27/22 [History Confirmed 02/26/24] Allergies/Adverse Reactions: Allergies Allergy/AdvReac Type Severity Reaction Status Date / Time No Known Drug Allergies Allergy Verified 02/27/24 01:21 - Past Medical History Past Medical History: Yes Neurological History: Stroke ENT History: Cataracts Cardiac History: No Pertinent History Respiratory History: No Pertinent History Endocrine Medical History: No Pertinent History Musculoskelatal History: No Pertinent History GI Medical History: No Pertinent History History: Other Pyscho-Social History: No Pertinent History Reproductive Disorders: No Pertinent History Comment: Kindney stones. - Past Surgical History Past Surgical History: Yes Neuro Surgical History: No Pertinent History Cardiac History: No Pertinent History Respiratory Surgery: No Pertinent History GI Surgical History: Cholecystectomy, Hernia Repair Genitourinary Surgical Hx: Kidney Surgery Musculskeletal Surgical Hx: No Pertinent History Female Surgical History: No Pertinent History Other Surgical History: gangene gb Significant Family History: no pertinent family hx - Social History Smoking Status: Never smoker How long have you smoked: 2 years Exposure to second hand smoke: No Alcohol: None Drug Use: none - Social Determinants of Health Will the patient participate in the screening: Yes Do you worry about a steady place to live?: No Do you have any problems with any of the following?: No known problems In the past 12 months,have you had to go without utilities?: No Have you or anyone in your house had to go without enough: No Transportation Issues: Yes Has anyone in your support network made you feel unsafe?: No Does the patient want assistance with any of the above?: Yes Comment: pt doesnt drive anymore and it is hard to make it to appointments - Physical Exam Vital Signs: Vital Signs - 24 hr Temp Pulse Resp BP BP Pulse Ox 02/27/24 01:20 95 02/27/24 00:27 97.3 F 97 H 26 H 155/96 95 02/26/24 23:34 96 02/26/24 23:00 103 H 34 H 123/99 98 02/26/24 22:30 100 H 26 H 129/106 02/26/24 22:25 102 H 26 H 99 02/26/24 22:19 105 H 26 H 141/116 98 02/26/24 22:13 70 14 141/116 87 L 02/26/24 22:00 89 20 98 02/26/24 21:58 97 H 30 H 98 02/26/24 20:43 96 02/26/24 20:04 97.7 F 112 H 16 157/101 96 General Appearance: no apparent distress Neurologic Exam: alert, oriented x 3, other (hard of hearing) Respiratory Exam: lungs clear, other (on 4L oxygen by NC), No respiratory distress Cardiovascular Exam: regular rate/rhythm Gastrointestinal/Abdomen Exam: normal bowel sounds, No distention Results - Labs Lab/Micro Results: Lab Results-Last 24 Hours 02/26/24 02/26/24 02/26/24 Range/Units 20:55 20:56 20:56 WBC 6.6 (3.98-10.04) x10^3/uL RBC 4.60 (3.93-5.22) x10^6/uL Hgb 13.6 (11.2-15.7) g/dL Hct 43.0 (34.1-44.9) % MCV 93.5 (79.4-94.8) fL MCH 29.6 (25.6-32.2) pg MCHC 31.6 L (32.2-35.5) g/dL RDW 13.5 (11.7-14.4) % Plt Count 231 (182-369) x10^3/uL MPV 10.8 (9.4-12.3) fL Gran % 76.1 H (34.0-71.1) % Immature Gran % (Auto) 0.5 H (0.001-0.429) % Nucleat RBC Rel Count 0.0 (0.00-0.2) % Eos # (Auto) 0.08 (0.04-0.36) x10^3/uL Immature Gran # (Auto) 0.03 (0.001-0.031) x10^3u/L Absolute Lymphs (auto) 0.80 L (1.18-3.74) x10^3/uL Absolute Monos (auto) 0.62 (0.24-0.86) x10^3/uL Absolute Nucleated RBC 0.00 (0.00-0.012) x10^3u/L Lymphocytes % 12.2 L (19.3-51.7) % Monocytes % 9.5 (4.7-12.5) % Eosinophils % 1.2 (0.7-5.8) % Basophils % 0.5 (0.1-1.2) % Absolute Granulocytes 4.99 (1.56-6.13) x10^3/uL Basophils # 0.03 (0.01-0.08) x10^3/uL Sodium 140 (135-145) mmol/L Potassium 4.3 (3.5-5.1) mmol/L Chloride 106 (98-107) mmol/L Carbon Dioxide 25 (22-30) mmol/L Anion Gap 13.8 (5-15) MEQ/L BUN 20 H (7-17) mg/dL Creatinine 0.86 (0.52-1.04) mg/dL Estimated GFR 67.4 ML/MIN Glucose 164 H (74-106) mg/dL Lactic Acid 1.5 (0.4-2.0) Calcium 9.9 (8.4-10.2) mg/dL Magnesium 1.9 (1.6-2.3) mg/dL Total Bilirubin 0.50 (0.2-1.3) mg/dL AST 22 (14-36) U/L ALT 17 (0-35) U/L Alkaline Phosphatase 69 (38-126) U/L Troponin I (0.000-0.033) ng/mL NT-Pro-B Natriuret Pep 8980 (<300) pg/mL Serum Total Protein 6.8 (6.3-8.2) g/dL Albumin 3.9 (3.5-5.0) g/dL Urine Color (Yellow) Urine Appearance (Clear) Urine pH (4.6-8.0) Ur Specific Adger (1.005-1.030) Urine Protein (Negative) Urine Glucose (UA) (Negative) mg/dL Urine Ketones (Negative) Urine Blood (Negative) Urine Nitrite (Negative) Urine Bilirubin (Negative) Urine Urobilinogen (0.2) mg/dL Ur Leukocyte Esterase (Negative) U Hyaline Cast (Auto) (0-2) /LPF Urine Microscopic RBC (0-5) /HPF Urine Microscopic WBC (0-5) /HPF Ur Epithelial Cells (None Seen) /HPF Calcium Oxalate Crystal (None Seen) /HPF Triple Phos Crystals (None Seen) /HPF Urine Bacteria (None Seen) /HPF Urine Culture Reflexed (NO) Influenza Type A Ag (NEGATIVE) Influenza Type B Ag (NEGATIVE) RSV (PCR) (NEGATIVE) SARS-CoV-2 (PCR) (NEGATIVE) 02/26/24 02/26/24 02/26/24 Range/Units 20:56 21:00 22:14 WBC (3.98-10.04) x10^3/uL RBC (3.93-5.22) x10^6/uL Hgb (11.2-15.7) g/dL Hct (34.1-44.9) % MCV (79.4-94.8) fL MCH (25.6-32.2) pg MCHC (32.2-35.5) g/dL RDW (11.7-14.4) % Plt Count (182-369) x10^3/uL MPV (9.4-12.3) fL Gran % (34.0-71.1) % Immature Gran % (Auto) (0.001-0.429) % Nucleat RBC Rel Count (0.00-0.2) % Eos # (Auto) (0.04-0.36) x10^3/uL Immature Gran # (Auto) (0.001-0.031) x10^3u/L Absolute Lymphs (auto) (1.18-3.74) x10^3/uL Absolute Monos (auto) (0.24-0.86) x10^3/uL Absolute Nucleated RBC (0.00-0.012) x10^3u/L Lymphocytes % (19.3-51.7) % Monocytes % (4.7-12.5) % Eosinophils % (0.7-5.8) % Basophils % (0.1-1.2) % Absolute Granulocytes (1.56-6.13) x10^3/uL Basophils # (0.01-0.08) x10^3/uL Sodium (135-145) mmol/L Potassium (3.5-5.1) mmol/L Chloride (98-107) mmol/L Carbon Dioxide (22-30) mmol/L Anion Gap (5-15) MEQ/L BUN (7-17) mg/dL Creatinine (0.52-1.04) mg/dL Estimated GFR ML/MIN Glucose (74-106) mg/dL Lactic Acid (0.4-2.0) Calcium (8.4-10.2) mg/dL Magnesium (1.6-2.3) mg/dL Total Bilirubin (0.2-1.3) mg/dL AST (14-36) U/L ALT (0-35) U/L Alkaline Phosphatase (38-126) U/L Troponin I 0.020 (0.000-0.033) ng/mL NT-Pro-B Natriuret Pep (<300) pg/mL Serum Total Protein (6.3-8.2) g/dL Albumin (3.5-5.0) g/dL Urine Color Yellow (Yellow) Urine Appearance Turbid A (Clear) Urine pH 5.0 (4.6-8.0) Ur Specific Adger 1.025 (1.005-1.030) Urine Protein 100 A (Negative) Urine Glucose (UA) Negative (Negative) mg/dL Urine Ketones Negative (Negative) Urine Blood Negative (Negative) Urine Nitrite Negative (Negative) Urine Bilirubin Negative (Negative) Urine Urobilinogen 0.2 (0.2) mg/dL Ur Leukocyte Esterase Moderate A (Negative) U Hyaline Cast (Auto) 11-20 (0-2) /LPF Urine Microscopic RBC 11-20 A (0-5) /HPF Urine Microscopic WBC >100 A (0-5) /HPF Ur Epithelial Cells Moderate A (None Seen) /HPF Calcium Oxalate Crystal 11-25 A (None Seen) /HPF Triple Phos Crystals 6-10 A (None Seen) /HPF Urine Bacteria Many A (None Seen) /HPF Urine Culture Reflexed YES (NO) Influenza Type A Ag NEGATIVE (NEGATIVE) Influenza Type B Ag NEGATIVE (NEGATIVE) RSV (PCR) NEGATIVE (NEGATIVE) SARS-CoV-2 (PCR) NEGATIVE (NEGATIVE) 02/27/24 Range/Units 00:15 WBC (3.98-10.04) x10^3/uL RBC (3.93-5.22) x10^6/uL Hgb (11.2-15.7) g/dL Hct (34.1-44.9) % MCV (79.4-94.8) fL MCH (25.6-32.2) pg MCHC (32.2-35.5) g/dL RDW (11.7-14.4) % Plt Count (182-369) x10^3/uL MPV (9.4-12.3) fL Gran % (34.0-71.1) % Immature Gran % (Auto) (0.001-0.429) % Nucleat RBC Rel Count (0.00-0.2) % Eos # (Auto) (0.04-0.36) x10^3/uL Immature Gran # (Auto) (0.001-0.031) x10^3u/L Absolute Lymphs (auto) (1.18-3.74) x10^3/uL Absolute Monos (auto) (0.24-0.86) x10^3/uL Absolute Nucleated RBC (0.00-0.012) x10^3u/L Lymphocytes % (19.3-51.7) % Monocytes % (4.7-12.5) % Eosinophils % (0.7-5.8) % Basophils % (0.1-1.2) % Absolute Granulocytes (1.56-6.13) x10^3/uL Basophils # (0.01-0.08) x10^3/uL Sodium (135-145) mmol/L Potassium (3.5-5.1) mmol/L Chloride (98-107) mmol/L Carbon Dioxide (22-30) mmol/L Anion Gap (5-15) MEQ/L BUN (7-17) mg/dL Creatinine (0.52-1.04) mg/dL Estimated GFR ML/MIN Glucose (74-106) mg/dL Lactic Acid (0.4-2.0) Calcium (8.4-10.2) mg/dL Magnesium (1.6-2.3) mg/dL Total Bilirubin (0.2-1.3) mg/dL AST (14-36) U/L ALT (0-35) U/L Alkaline Phosphatase (38-126) U/L Troponin I 0.028 (0.000-0.033) ng/mL NT-Pro-B Natriuret Pep (<300) pg/mL Serum Total Protein (6.3-8.2) g/dL Albumin (3.5-5.0) g/dL Urine Color (Yellow) Urine Appearance (Clear) Urine pH (4.6-8.0) Ur Specific Adger (1.005-1.030) Urine Protein (Negative) Urine Glucose (UA) (Negative) mg/dL Urine Ketones (Negative) Urine Blood (Negative) Urine Nitrite (Negative) Urine Bilirubin (Negative) Urine Urobilinogen (0.2) mg/dL Ur Leukocyte Esterase (Negative) U Hyaline Cast (Auto) (0-2) /LPF Urine Microscopic RBC (0-5) /HPF Urine Microscopic WBC (0-5) /HPF Ur Epithelial Cells (None Seen) /HPF Calcium Oxalate Crystal (None Seen) /HPF Triple Phos Crystals (None Seen) /HPF Urine Bacteria (None Seen) /HPF Urine Culture Reflexed (NO) Influenza Type A Ag (NEGATIVE) Influenza Type B Ag (NEGATIVE) RSV (PCR) (NEGATIVE) SARS-CoV-2 (PCR) (NEGATIVE) - Radiology Impressions Radiology Exams & Impressions: Radiology Procedures Category Date Time Status CHEST 1 VIEW (PORTABLE) Stat Exams 02/26/24 20:39 Taken CXR - left pleural effusion, some pulmonary vascular congestion, possible right base infiltrate (images reviewed) - Other Procedures and Tests Respiratory Therapy 02/26/24 22:23 Respiratory Therapy Assessment DAILY 02/27/24 00:15 Oxygen Nasal Cannula 2 lpm Assessment/Plan (1) CHF (congestive heart failure) Current Visit: Yes Status: Acute Qualifiers: Assessment & Plan: 84 y/o F with h/o CVA, here with progressive dyspnea and volume overload, c oncerning for new onset heart failure. ## Acute heart failure - with elevated BNP, edema and effusion on CXR, and progressive dyspnea. No symptoms of infection, although possibly an early infiltrate at right base on CXR. Currently requiring 4L NC oxygen, but can likely wean - give Lasix 40 mg IV BID - check Echo - d/c continuous NS from ED - titrate FiO2 to maintain SpO2 91-94% ## Acute cystitis - with pyuria on UA, but no symptoms - continue Rocephin for now - follow up urine culture ## h/o CVA - patient only on aspirin, and high-dose at that. Unclear why not on low-dose aspirin and no statin - continue aspirin for now Code status: Full code Prophylaxis: lovenox Diet: Regular Code(s): I50.9 - HEART FAILURE, UNSPECIFIED Telemedicine Encounter - Telemedicine Encounter Telemedicine Encounter: "The entirety of this encounter was performed via Telemedicine" This visit was performed using real-time audio and video connection between my location and thepatients locationwith the assistance of a surrogateat the patients location. Written or verbal consent was obtained from the patient/guardian to perform this [facility]. Any patient questions regarding the telemedicine interaction were answered.
[2024-02-27 04:23] LABS: Absolute Neutrophil Ct (ANC) 6.75 x10^3/uL (1.56-6.13); BASOPHIL % 0.2 % (0.1-1.2); Basophil (Absolute #) 0.02 x10^3/uL (0.01-0.08); Eosinophil % 1.1 % (0.7-5.8); Hematocrit 39.7 % (34.1-44.9); Hemoglobin 12.8 g/dL (11.2-15.7); IMMATURE GRAN # 0.04 x10^3u/L (0.001-0.031); IMMATURE GRAN % 0.4 % (0.001-0.429); Lymphocyte (Absolute #) 1.03 x10^3/uL (1.18-3.74); Lymphocytes % 11.5 % (19.3-51.7); Mean Corpuscular Hgb Concent. 32.2 g/dL (32.2-35.5); Mean Platelet Volume 10.8 fL (9.4-12.3); Monocyte (Absolute #) 0.99 x10^3/uL (0.24-0.86); Monocytes % 11.1 % (4.7-12.5); Neutrophil % 75.7 % (34.0-71.1); Platelet Count 220 x10^3/uL (182-369); Red Blood Count 4.27 x10^6/uL (3.93-5.22); Red Cell Distribution Width 13.5 % (11.7-14.4); White Blood Count 8.9 x10^3/uL (3.98-10.04)
[2024-02-27 04:44] LABS: ALBUMIN 3.9 g/dL (3.5-5.0); ANION GAP 13.2 MEQ/L (5-15); BILIRUBIN,TOTAL 0.5 mg/dL (0.2-1.3); Calcium 9.5 mg/dL (8.4-10.2); Creatinine 1 0.8 mg/dL (0.52-1.04); EST GLOMERULAR FILTRATION RATE 73.5 ML/MIN; Potassium 3.7 mmol/L (3.5-5.1)
--- NOTE | 2024-02-27 09:03 | XRAY ---
Indication: Short of breath. Comparison: April 28, 2022 Portable chest now demonstrates mild pulmonary edema and mild left lung base infiltrate/atelectasis/effusion. Stable right base fibrosis/scarring. Heart borderline enlarged with central vascular prominence. Bony thorax intact again with osteopenia, degenerative changes, and dextra scoliosis. Impression: Borderline cardiomegaly, pulmonary edema, and left lung base infiltrate/atelectasis/effusion. Rule out cardiac decompensation/CHF. Superimposed pneumonia not completely excluded.
[2024-02-27] MEDS: ENOXAPARIN SODIUM SQ SCH (09:50)
[2024-02-27] MEDS: Ecotrin 325 MG PO SCH (09:50)
[2024-02-27] MEDS ORDERED: Lasix 20 MG/2 ML ONE (20:50)
[2024-02-27] MEDS: Lasix 20 MG/2 ML IV SCH (21:05)
[2024-02-27] MEDS: ROCEPHIN 1 GM / 100 ML NaCl 1 GM/100 ML IVPB IV SCH (22:40)
[2024-02-27] MEDS ORDERED: Cozaar 50 MG ONE (23:55)
[2024-02-28] MEDS: Cozaar 50 MG PO SCH
--- NOTE | 2024-02-28 00:03 | PCM.CONS ---
History of Present Illness - Date of Consult Date of Encounter: 02/27/24 Consulting Metals Analyst: JULIUS WOODS MD Requesting Provider: Attending Provider: DAREN ALMARAZ MD Primary Care Provider: PCP: STACY TIM DO Consent was: Given for this tele-med encounter - Consult Narrative Reason for Consult: new onset heart failure HPI: Patient is a 84F who is hard of hearing and a poor hisotrian. She has not been feeling well for the past several days but cannot explain further. She has had shortness of breath and swelling in her legs as well. This happened gradually over the course of several weeks. In the ED she was hypoxic and required 4 liters nasal cannula. Had audible wheezing at that time. Started on IV diuresis. Feeling better today. Down to 1 liter nasal cannula. She endorses orthopnea. Denies chest pressures. Denies syncope. ECG shows LBBB. Echocardiogram obtained--- severe LV dysfunction with LVEF 25-30%. Moderate to sever MR. Dilated IVC. cc:: The requesting physician will be sent a copy of the consult. Review of Systems - Review of Systems All systems: as per HPI - Past Medical History Past Medical History: Yes Neurological History: Stroke ENT History: Cataracts Cardiac History: No Pertinent History Respiratory History: No Pertinent History Endocrine Medical History: No Pertinent History Musculoskelatal History: No Pertinent History GI Medical History: No Pertinent History History: Other Pyscho-Social History: No Pertinent History Reproductive Disorders: No Pertinent History Comment: Kindney stones. - Past Surgical History Past Surgical History: Yes Neuro Surgical History: No Pertinent History Cardiac History: No Pertinent History Respiratory Surgery: No Pertinent History GI Surgical History: Cholecystectomy, Hernia Repair Genitourinary Surgical Hx: Kidney Surgery Musculskeletal Surgical Hx: No Pertinent History Female Surgical History: No Pertinent History Other Surgical History: gangene gb Significant Family History: no pertinent family hx - Social History Smoking Status: Never smoker How long have you smoked: 2 years Exposure to second hand smoke: No Alcohol: None Drug Use: none - Social Determinants of Health Will the patient participate in the screening: Yes Do you worry about a steady place to live?: No Do you have any problems with any of the following?: No known problems In the past 12 months,have you had to go without utilities?: No Have you or anyone in your house had to go without enough: No Transportation Issues: Yes Has anyone in your support network made you feel unsafe?: No Does the patient want assistance with any of the above?: Yes Comment: pt doesnt drive anymore and it is hard to make it to appointments Medications & Allergies Home Medications: Home Medication List Aspirin EC 325 mg [Ecotrin 325 MG] 325 mg PO DAILY 04/27/22 [History Confirmed 02/27/24] Allergies/Adverse Reactions: Allergies Allergy/AdvReac Type Severity Reaction Status Date / Time No Known Drug Allergies Allergy Verified 02/27/24 01:21 Exam - Vitals Vital Signs: Vital Signs - 24 hr Temp Pulse Resp BP Pulse Ox 02/27/24 23:42 97.5 F 100 H 20 134/99 93 L 02/27/24 20:00 97.2 F 99 H 18 143/99 95 02/27/24 19:00 97 02/27/24 16:00 97 F 91 H 16 108/64 98 02/27/24 11:21 97.7 F 75 16 139/82 98 02/27/24 07:32 100 H 20 98 02/27/24 07:14 98.4 F 84 16 141/99 98 02/27/24 04:00 97.1 F 90 18 148/93 97 02/27/24 01:20 95 02/27/24 00:27 97.3 F 97 H 26 H 155/96 95 General:: no acute distress HEENT: PERRLA, EOMI Cardiovascular Exam: regular rate/rhythm, normal heart sounds, No murmur Respiratory Exam: normal breath sounds, No chest tenderness SpO2: 93 Oxygen Delivery: Nasal Cannula Gastrointestinal/Abdomen Exam: soft, normal bowel sounds Extremity Exam: warm, well perfused, pedal edema, swelling Results Vital Signs: Vital Signs - 24 hr Temp Pulse Resp BP Pulse Ox 02/27/24 23:42 97.5 F 100 H 20 134/99 93 L 02/27/24 20:00 97.2 F 99 H 18 143/99 95 02/27/24 19:00 97 02/27/24 16:00 97 F 91 H 16 108/64 98 02/27/24 11:21 97.7 F 75 16 139/82 98 02/27/24 07:32 100 H 20 98 02/27/24 07:14 98.4 F 84 16 141/99 98 02/27/24 04:00 97.1 F 90 18 148/93 97 02/27/24 01:20 95 02/27/24 00:27 97.3 F 97 H 26 H 155/96 95 Pain Assessment - Last Documented Pain Intensity 0 Intake and Output: Intake & Output 02/25/24 02/26/24 02/27/24 02/28/24 11:59 11:59 11:59 11:59 Intake Total 380 180 Output Total 400 1450 Balance -20 -1270 Weight 84.4 kg LAB: I have reviewed the Labs in [employer]. Radiology Exams: Radiology Procedures Category Date Time Status CHEST 1 VIEW (PORTABLE) Stat Exams 02/26/24 20:39 Completed ECHO W/2D AND DOPPLER [US] Routine Exams 02/27/24 02:39 Taken - ECHO Echo: image reviewed by me (LV systolic dysfunction LVEF 25-30% Moderate to severe MR Dilated IVC) Multi-Disciplinary Progress Notes: Multi-Disciplinary Progress Notes 02/27/24 14:34 Case Management Note by Heike Villalobos REFERRAL FAXED TO [facility]. THEY HAVE ACCEPTED. THEY WILL NEED NOTIFIED AT TIME OF DC AT [phone]. THEY WILL NEED FAXED THE DC INSTRUCTIONS, DC MED LIST AND DC SUMMARY TO [phone] Initialized on 02/27/24 14:34 - END OF NOTE Assessment & Plan (1) CHF (congestive heart failure) Current Visit: Yes Status: Acute Qualifiers: Heart failure type: systolic Heart failure chronicity: acute Qualified Code(s): I50.21 - Acute systolic (congestive) heart failure Assessment & Plan: Unknown etiology, LVEF 25-30%. Profile B, NYHA III - Increase lasix to 60 mg BID - goal negative 2-3 liters per day - Start losartan for afterload reduction - Strict I/O - Daily weights, low sodium diet - Keep K>4, Mg>2 - monitor on tele - will need ischemic evaluation for HF after discharge. Code(s): I50.9 - HEART FAILURE, UNSPECIFIED (2) Pleural effusion, left Current Visit: Yes Status: Acute Assessment & Plan: Continue diuresis as above. If not improved consider thoracentesis. Code(s): J90 - PLEURAL EFFUSION, NOT ELSEWHERE CLASSIFIED (3) Shortness of breath Current Visit: No Status: Acute Code(s): R06.02 - SHORTNESS OF BREATH - Encounter Encounter: "The entirety of this encounter was performed via Telemedicine using audio and visual "
[2024-02-28 05:13] LABS: Absolute Neutrophil Ct (ANC) 5.55 x10^3/uL (1.56-6.13); BASOPHIL % 0.5 % (0.1-1.2); Basophil (Absolute #) 0.04 x10^3/uL (0.01-0.08); Eosinophil % 2.8 % (0.7-5.8); Eosinophil (Absolute #) 0.22 x10^3/uL (0.04-0.36); Hematocrit 39.9 % (34.1-44.9); Hemoglobin 12.6 g/dL (11.2-15.7); IMMATURE GRAN # 0.02 x10^3u/L (0.001-0.031); IMMATURE GRAN % 0.3 % (0.001-0.429); Lymphocyte (Absolute #) 1.21 x10^3/uL (1.18-3.74); Lymphocytes % 15.3 % (19.3-51.7); Mean Cell Volume 93.2 fL (79.4-94.8); Mean Corpuscular Hemoglobin 29.4 pg (25.6-32.2); Mean Corpuscular Hgb Concent. 31.6 g/dL (32.2-35.5); Mean Platelet Volume 11.2 fL (9.4-12.3); Monocyte (Absolute #) 0.88 x10^3/uL (0.24-0.86); Monocytes % 11.1 % (4.7-12.5); Platelet Count 213 x10^3/uL (182-369); Red Blood Count 4.28 x10^6/uL (3.93-5.22); Red Cell Distribution Width 13.5 % (11.7-14.4); White Blood Count 7.9 x10^3/uL (3.98-10.04)
--- NOTE | 2024-02-28 05:17 | PCM.NOTE ---
Date and Time: 02/28/24 0510 Subjective Assessment: HPI: 84 y/o F with h/o CVA, who presents with dyspnea. Patient is somewhat difficult historian; initially only states that she didn't feel well for a few days, but could not explain further. Eventually described having a quivering in her stomach, then said this quivering is when she is short of breath with exertion. It appears she has had progressive dyspnea, particularly with exertion, for the past few days. She denies fevers, chest pain, and has only a mild non-productive cough. She was unaware of any edema, but states someone told her her legs were swollen. Denies h/o dyspnea. She was placed on 4L oxygen prior to arrival to ED; her SpO2 is 98% on that. Echo showing severe LV dysfunction with LVEF 25-30%. Moderate to sever MR. Dilated IVC. Cardiology consulted with recommendations to Start losartan for afterload reduction and increase lasix to 60mg bid. Patient will need set up with cardiology as op for HF workup - agreed to follow up with [facility]. CM to work on help with transportation. 02/28/24: Met with patient bedside. Endorses improvement in activity level and shortness of breath. Discussed cardiology consult and recommendations. Discussed the importance of compliance with medications and follow up with cardiology. Patient states she has a hard time with transportation for follow up. CM to look into help with transport. Hypokalemia on labs this morning. Will replenish. Add potassium to daily medications. Denies fever,cough, cp, abdominal pain, LEWIS, dizziness, N/V/D. - Review of Systems Constitutional: Weakness Eyes: No Symptoms Ears, Nose, & Throat: No Symptoms Respiratory: Short Of Breath Cardiac: No Symptoms Abdominal/Gastrointestinal: No Symptoms Genitourinary Symptoms: No Symptoms Musculoskeletal: No Symptoms Skin: No Symptoms Neurological: No Symptoms Psychological: No Symptoms Endocrine: No Symptoms Hematologic/Lymphatic: No Symptoms Immunological/Allergic: No Symptoms Objective Exam General Appearance: no apparent distress Neurologic Exam: alert, oriented x 3, cooperative Skin Exam: normal color Eye Exam: PERRL Ears, Nose, Throat Exam: normal ENT inspection Neck Exam: normal inspection Cardiovascular Exam: regular rate/rhythm, normal heart sounds Gastrointestinal/Abdomen Exam: soft, normal bowel sounds Extremity Exam: normal inspection Back Exam: normal inspection Pelvic Exam: deferred Rectal Exam: deferred Objective Data Vital Signs: Vital Signs - 24 hr Temp Pulse Resp BP Pulse Ox 02/28/24 00:06 93 L 02/27/24 23:42 97.5 F 100 H 20 134/99 93 L 02/27/24 20:00 97.2 F 99 H 18 143/99 95 02/27/24 19:00 97 02/27/24 16:00 97 F 91 H 16 108/64 98 02/27/24 11:21 97.7 F 75 16 139/82 98 02/27/24 07:32 100 H 20 98 02/27/24 07:14 98.4 F 84 16 141/99 98 Pain Assessment - Last Documented Pain Intensity 0 Intake and Output: Intake & Output 02/25/24 02/26/24 02/27/24 02/28/24 11:59 11:59 11:59 11:59 Intake Total 380 680 Output Total 400 1775 Balance -20 -1095 Weight 84.4 kg Radiology Exams: Radiology Procedures Category Date Time Status CHEST 1 VIEW (PORTABLE) Stat Exams 02/26/24 20:39 Completed ECHO W/2D AND DOPPLER [US] Routine Exams 02/27/24 02:39 Taken Multi-Disciplinary Progress Notes: Multi-Disciplinary Progress Notes 02/27/24 14:34 Case Management Note by Heike Villalobos REFERRAL FAXED TO [facility]. THEY HAVE ACCEPTED. THEY WILL NEED NOTIFIED AT TIME OF DC AT [phone]. THEY WILL NEED FAXED THE DC INSTRUCTIONS, DC MED LIST AND DC SUMMARY TO [phone] Initialized on 02/27/24 14:34 - END OF NOTE Assessment/Plan (1) CHF exacerbation Current Visit: Yes Status: Acute Assessment & Plan: -Reviewed cardiology recommendations, agree with plan to add losartan/increase lasix to 60mg bid -Echo reviewed showing severe LV dysfunction with LVEF 25-30%. Moderate to sever MR. Dilated IVC -Strict I&O with goal of -2-3L daily -daily weight/low sodium diet -optimize electrolytes K>4, Mg>2 - add potassium -tele -Will need cardiology follow up as OP with Dr. Beard - to work on help with transportation -repeat CXR Code(s): I50.9 - HEART FAILURE, UNSPECIFIED (2) Pleural effusion, left Current Visit: Yes Status: Acute Assessment & Plan: -Continue diuresis as above -Repeat CXR - in no improvement may need IR evaluation for thoracentesis. Code(s): J90 - PLEURAL EFFUSION, NOT ELSEWHERE CLASSIFIED (3) UTI (urinary tract infection) Current Visit: Yes Status: Acute Assessment & Plan: -final culture with mixed margie, will d/c abx Code(s): N39.0 - URINARY TRACT INFECTION, SITE NOT SPECIFIED (4) History of CVA (cerebrovascular accident) Current Visit: Yes Status: Acute Assessment & Plan: -continue home meds Code(s): Z86.73 - PRSNL HX OF TIA (TIA), AND CEREB INFRC W/O RESID DEFICITS (5) Hypokalemia Current Visit: Yes Status: Acute Assessment & Plan: -at 3.3 this morning, will replenish - add 20meq BID daily with increased lasix dosing Code(s): E87.6 - HYPOKALEMIA
[2024-02-28 05:50] LABS: ALBUMIN 3.8 g/dL (3.5-5.0); ANION GAP 12.8 MEQ/L (5-15); BILIRUBIN,TOTAL 0.6 mg/dL (0.2-1.3); Calcium 8.7 mg/dL (8.4-10.2); Creatinine 1 0.8 mg/dL (0.52-1.04); EST GLOMERULAR FILTRATION RATE 73.5 ML/MIN; Potassium 3.3 mmol/L (3.5-5.1); Total Protein 6.8 g/dL (6.3-8.2)
[2024-02-28] MEDS: Klor Con PO ONE (06:26)
[2024-02-28] MEDS: Furosemide 100mg/10 ml Vial IV SCH (09:32)
[2024-02-28] MEDS: Klor Con PO SCH (09:33)
[2024-02-28] MEDS: DUONEB 0.5-3 MG/3 ml Neb IH SCH (09:49)
[2024-02-29 04:43] LABS: Absolute Neutrophil Ct (ANC) 4.69 x10^3/uL (1.56-6.13); BASOPHIL % 0.4 % (0.1-1.2); Basophil (Absolute #) 0.03 x10^3/uL (0.01-0.08); Eosinophil % 3.7 % (0.7-5.8); Eosinophil (Absolute #) 0.26 x10^3/uL (0.04-0.36); Hematocrit 39.5 % (34.1-44.9); Hemoglobin 12.9 g/dL (11.2-15.7); IMMATURE GRAN # 0.02 x10^3u/L (0.001-0.031); IMMATURE GRAN % 0.3 % (0.001-0.429); Lymphocyte (Absolute #) 1.25 x10^3/uL (1.18-3.74); Lymphocytes % 17.6 % (19.3-51.7); Mean Cell Volume 91.4 fL (79.4-94.8); Mean Corpuscular Hemoglobin 29.9 pg (25.6-32.2); Mean Corpuscular Hgb Concent. 32.7 g/dL (32.2-35.5); Mean Platelet Volume 11.3 fL (9.4-12.3); Monocyte (Absolute #) 0.84 x10^3/uL (0.24-0.86); Monocytes % 11.8 % (4.7-12.5); Neutrophil % 66.2 % (34.0-71.1); Platelet Count 229 x10^3/uL (182-369); Red Blood Count 4.32 x10^6/uL (3.93-5.22); Red Cell Distribution Width 13.6 % (11.7-14.4); White Blood Count 7.1 x10^3/uL (3.98-10.04)
--- NOTE | 2024-02-29 05:05 | PCM.NOTE ---
Date and Time: 02/29/24 0502 Subjective Assessment: HPI: 84 y/o F with h/o CVA, who presents with dyspnea. Patient is somewhat difficult historian; initially only states that she didn't feel well for a few days, but could not explain further. Eventually described having a quivering in her stomach, then said this quivering is when she is short of breath with exertion. It appears she has had progressive dyspnea, particularly with exertion, for the past few days. She denies fevers, chest pain, and has only a mild non-productive cough. She was unaware of any edema, but states someone told her her legs were swollen. Denies h/o dyspnea. She was placed on 4L oxygen prior to arrival to ED; her SpO2 is 98% on that. Echo showing severe LV dysfunction with LVEF 25-30%. Moderate to sever MR. Dilated IVC. Cardiology consulted with recommendations to Start losartan for afterload reduction and increase lasix to 60mg bid. Patient will need set up with cardiology as op for HF workup - agreed to follow up with [facility]. CM to work on help with transportation. 02/28/24: Met with patient bedside. Endorses improvement in activity level and shortness of breath. Discussed cardiology consult and recommendations. Discussed the importance of compliance with medications and follow up with cardiology. Patient states she has a hard time with transportation for follow up. CM to look into help with transport. Hypokalemia on labs this morning. Will replenish. Add potassium to daily medications. Denies fever,cough, cp, abdominal pain, LEWIS, dizziness, N/V/D. Objective Data Vital Signs: Vital Signs - 24 hr Temp Pulse Resp BP Pulse Ox 02/28/24 23:00 97.1 F 82 17 136/83 94 L 02/28/24 19:05 79 18 94 L 02/28/24 19:00 97.5 F 92 H 16 140/80 93 L 02/28/24 15:00 97.1 F 98 H 16 128/68 93 L 02/28/24 14:56 94 H 16 93 L 02/28/24 11:23 94 H 16 93 L 02/28/24 11:00 96.7 F 107 H 16 128/73 92 L 02/28/24 09:53 94 H 16 94 L 02/28/24 07:25 95 02/28/24 07:00 96.1 F 88 18 141/84 93 L Pain Assessment - Last Documented Pain Intensity 0 Intake and Output: Intake & Output 02/26/24 02/27/24 02/28/24 02/29/24 11:59 11:59 11:59 11:59 Intake Total 380 890 720 Output Total 400 5604 6153 Balance -20 -953 -2482 Weight 84.4 kg 84 kg Lab Results: Lab Results-Last 24 Hours 02/28/24 02/28/24 02/28/24 Range/Units 05:00 05:00 10:05 WBC 7.9 (3.98-10.04) x10^3/uL RBC 4.28 (3.93-5.22) x10^6/uL Hgb 12.6 (11.2-15.7) g/dL Hct 39.9 (34.1-44.9) % MCV 93.2 (79.4-94.8) fL MCH 29.4 (25.6-32.2) pg MCHC 31.6 L (32.2-35.5) g/dL RDW 13.5 (11.7-14.4) % Plt Count 213 (182-369) x10^3/uL MPV 11.2 (9.4-12.3) fL Gran % 70.0 (34.0-71.1) % Immature Gran % (Auto) 0.3 (0.001-0.429) % Nucleat RBC Rel Count 0.0 (0.00-0.2) % Eos # (Auto) 0.22 (0.04-0.36) x10^3/uL Immature Gran # (Auto) 0.02 (0.001-0.031) x10^3u/L Absolute Lymphs (auto) 1.21 (1.18-3.74) x10^3/uL Absolute Monos (auto) 0.88 H (0.24-0.86) x10^3/uL Absolute Nucleated RBC 0.00 (0.00-0.012) x10^3u/L Lymphocytes % 15.3 L (19.3-51.7) % Monocytes % 11.1 (4.7-12.5) % Eosinophils % 2.8 (0.7-5.8) % Basophils % 0.5 (0.1-1.2) % Absolute Granulocytes 5.55 (1.56-6.13) x10^3/uL Basophils # 0.04 (0.01-0.08) x10^3/uL Sodium 139 (135-145) mmol/L Potassium 3.3 L 3.8 (3.5-5.1) mmol/L Chloride 101 (98-107) mmol/L Carbon Dioxide 28 (22-30) mmol/L Anion Gap 12.8 (5-15) MEQ/L BUN 20 H (7-17) mg/dL Creatinine 0.80 (0.52-1.04) mg/dL Estimated GFR 73.5 ML/MIN Glucose 115 H (74-106) mg/dL Calcium 8.7 (8.4-10.2) mg/dL Total Bilirubin 0.60 (0.2-1.3) mg/dL AST 25 (14-36) U/L ALT 17 (0-35) U/L Alkaline Phosphatase 65 (38-126) U/L Serum Total Protein 6.8 (6.3-8.2) g/dL Albumin 3.8 (3.5-5.0) g/dL 02/29/24 Range/Units 04:35 WBC 7.1 (3.98-10.04) x10^3/uL RBC 4.32 (3.93-5.22) x10^6/uL Hgb 12.9 (11.2-15.7) g/dL Hct 39.5 (34.1-44.9) % MCV 91.4 (79.4-94.8) fL MCH 29.9 (25.6-32.2) pg MCHC 32.7 (32.2-35.5) g/dL RDW 13.6 (11.7-14.4) % Plt Count 229 (182-369) x10^3/uL MPV 11.3 (9.4-12.3) fL Gran % 66.2 (34.0-71.1) % Immature Gran % (Auto) 0.3 (0.001-0.429) % Nucleat RBC Rel Count 0.0 (0.00-0.2) % Eos # (Auto) 0.26 (0.04-0.36) x10^3/uL Immature Gran # (Auto) 0.02 (0.001-0.031) x10^3u/L Absolute Lymphs (auto) 1.25 (1.18-3.74) x10^3/uL Absolute Monos (auto) 0.84 (0.24-0.86) x10^3/uL Absolute Nucleated RBC 0.00 (0.00-0.012) x10^3u/L Lymphocytes % 17.6 L (19.3-51.7) % Monocytes % 11.8 (4.7-12.5) % Eosinophils % 3.7 (0.7-5.8) % Basophils % 0.4 (0.1-1.2) % Absolute Granulocytes 4.69 (1.56-6.13) x10^3/uL Basophils # 0.03 (0.01-0.08) x10^3/uL Sodium (135-145) mmol/L Potassium (3.5-5.1) mmol/L Chloride (98-107) mmol/L Carbon Dioxide (22-30) mmol/L Anion Gap (5-15) MEQ/L BUN (7-17) mg/dL Creatinine (0.52-1.04) mg/dL Estimated GFR ML/MIN Glucose (74-106) mg/dL Calcium (8.4-10.2) mg/dL Total Bilirubin (0.2-1.3) mg/dL AST (14-36) U/L ALT (0-35) U/L Alkaline Phosphatase (38-126) U/L Serum Total Protein (6.3-8.2) g/dL Albumin (3.5-5.0) g/dL Multi-Disciplinary Progress Notes: Multi-Disciplinary Progress Notes 02/28/24 13:19 Case Management Note by Heike Villalobos S/W PATIENT- SHE CONTINUES TO PLAN TO RETURN HOME AT TIME OF DC. C HAS BEEN SET UP FOR HER WITH [facility]. THEY WILL HELP HER GET SERVICES THRU [facility] Initialized on 02/28/24 13:19 - END OF NOTE Assessment/Plan (1) CHF exacerbation Current Visit: Yes Status: Acute Assessment & Plan: -Reviewed cardiology recommendations, agree with plan to add losartan/increase lasix to 60mg bid -Echo reviewed showing severe LV dysfunction with LVEF 25-30%. Moderate to sever MR. Dilated IVC -Strict I&O with goal of -2-3L daily -daily weight/low sodium diet -optimize electrolytes K>4, Mg>2 - add potassium -tele -Will need cardiology follow up as OP with Dr. Beard - to work on help with transportation -repeat CXR Code(s): I50.9 - HEART FAILURE, UNSPECIFIED (2) Pleural effusion, left Current Visit: Yes Status: Acute Assessment & Plan: -Continue diuresis as above -Repeat CXR - in no improvement may need IR evaluation for thoracentesis. Code(s): J90 - PLEURAL EFFUSION, NOT ELSEWHERE CLASSIFIED (3) UTI (urinary tract infection) Current Visit: Yes Status: Acute Assessment & Plan: -final culture with mixed margie, will d/c abx Code(s): N39.0 - URINARY TRACT INFECTION, SITE NOT SPECIFIED (4) History of CVA (cerebrovascular accident) Current Visit: Yes Status: Acute Assessment & Plan: -continue home meds Code(s): Z86.73 - PRSNL HX OF TIA (TIA), AND CEREB INFRC W/O RESID DEFICITS (5) Hypokalemia Current Visit: Yes Status: Acute Assessment & Plan: -at 3.3 this morning, will replenish - add 20meq BID daily with increased lasix dosing Code(s): E87.6 - HYPOKALEMIA Code(s): I50.9 - HEART FAILURE, UNSPECIFIED (2) Pleural effusion, left Current Visit: Yes Status: Acute Code(s): J90 - PLEURAL EFFUSION, NOT ELSEWHERE CLASSIFIED (3) UTI (urinary tract infection) Current Visit: Yes Status: Acute Code(s): N39.0 - URINARY TRACT INFECTION, SITE NOT SPECIFIED (4) History of CVA (cerebrovascular accident) Current Visit: Yes Status: Acute Code(s): Z86.73 - PRSNL HX OF TIA (TIA), AND CEREB INFRC W/O RESID DEFICITS (5) Hypokalemia Current Visit: Yes Status: Acute Code(s): E87.6 - HYPOKALEMIA
[2024-02-29 05:08] LABS: ALBUMIN 3.8 g/dL (3.5-5.0); ANION GAP 11.4 MEQ/L (5-15); BILIRUBIN,TOTAL 0.7 mg/dL (0.2-1.3); Calcium 8.7 mg/dL (8.4-10.2); Creatinine 1 0.91 mg/dL (0.52-1.04); Potassium 3.8 mmol/L (3.5-5.1); Total Protein 6.9 g/dL (6.3-8.2)
[2024-02-29] MEDS ORDERED: DUONEB 0.5-3 MG/3 ml Neb IH PRN (07:00)
[2024-02-29 07:21] VITALS: O2SAT 92
[2024-02-29 08:28] LABS: PROCALCITONIN 0.092 ng/mL (0.030-0.080)
--- NOTE | 2024-02-29 10:11 | PCM.DS ---
Discharge Summary Date of Admission: 02/26/24 23:53 Date of Discharge: 02/29/24 Admitting Physician: DAREN ALMARAZ MD Consults: Consults on Case 02/27/24 01:18 Case Management SDOH DC Needs Assessment ROUTINE 02/27/24 09:56 Consult Cardiology ROUTINE Primary Care Provider: STACY TIM DO Allergies Allergies No Known Drug Allergies Allergy (Verified 02/27/24 01:21) Hospital Summary - Hospital Course Hospital Course: HPI: 84 y/o F with h/o CVA, who presents with dyspnea. Patient is somewhat difficult historian; initially only states that she didn't feel well for a few days, but could not explain further. Eventually described having a quivering in her stomach, then said this quivering is when she is short of breath with exertion. It appears she has had progressive dyspnea, particularly with exertion, for the past few days. She denies fevers, chest pain, and has only a mild non-productive cough. She was unaware of any edema, but states someone told her her legs were swollen. Denies h/o dyspnea. She was placed on 4L oxygen prior to arrival to ED; her SpO2 is 98% on that. Echo showing severe LV dysfunction with LVEF 25-30%. Moderate to sever MR. Dilated IVC. CT chest performed showing Mediastinal and hilar lymphadenopathy most of them show central coarse calcifications. Upper abdominal lymphadenopathy is also noted. Mild bilateral pleural effusion with right fissural extension. Small right janeth-hilar consolidation is seen. Cardiomegaly is noted with mild pericardiac effusion. Changes of chronic liver disease. Atrophic kidneys. Left renal stone. Cardiology consulted with recommendations to Start losartan for afterload reduction and increase lasix to 60mg bid while IP. Patient will need set up with cardiology as op for HF workup - agreed to follow up with [facility] next week. CM to work on help with transportation. Advised follow up with pulmonology for further evaluation of lymphadenopathy demonstrated on CT scan. Dyspnea improved. Patient endorsing improvement in energy level and requesting discharge home today. Discussed the importance of OP follow up. Will dismiss with lasix 40mg daily/Losartan/ and potassium. Patient agreeable to plan and ready for d ischarge. Discharge Note New Diagnosis:CHF exacerbation New Medications: Losartan/lasix 40 daily/potassium Follow Up: PCP/Cardiology/Pulm Latest Assessment & Plan (1) CHF exacerbation Current Visit: Yes Status: Acute Assessment & Plan: -Reviewed cardiology recommendations, agree with plan to add losartan/increase lasix to 60mg bid -Echo reviewed showing severe LV dysfunction with LVEF 25-30%. Moderate to sever MR. Dilated IVC -Strict I&O with goal of -2-3L daily -daily weight/low sodium diet -optimize electrolytes K>4, Mg>2 - add potassium -tele -Will need cardiology follow up as OP with Dr. Lynch - to work on help with transportation -repeat CXR Code(s): I50.9 - HEART FAILURE, UNSPECIFIED (2) Pleural effusion, left Current Visit: Yes Status: Acute Assessment & Plan: -Continue diuresis as above -Repeat CXR - in no improvement may need IR evaluation for thoracentesis. Code(s): J90 - PLEURAL EFFUSION, NOT ELSEWHERE CLASSIFIED (3) UTI (urinary tract infection) Current Visit: Yes Status: Acute Assessment & Plan: -final culture with mixed margie, will d/c abx Code(s): N39.0 - URINARY TRACT INFECTION, SITE NOT SPECIFIED (4) History of CVA (cerebrovascular accident) Current Visit: Yes Status: Acute Assessment & Plan: -continue home meds Code(s): Z86.73 - PRSNL HX OF TIA (TIA), AND CEREB INFRC W/O RESID DEFICITS (5) Hypokalemia Current Visit: Yes Status: Acute Assessment & Plan: -at 3.3 this morning, will replenish - add 20meq BID daily with increased lasix dosing Code(s): E87.6 - HYPOKALEMIA I spent 35 minutes [id number] with the patient on the day of discharge performing discharge exam, discussing hospital stay and discharge instructions with patient and caregivers, preparation of discharge records, prescriptions & referral forms and addressing any questions/concerns the patient had as documen madisyn above. - Vitals & Intake/Output Vital Signs: Vital Signs Temperature 96.9 F 02/29/24 06:42 Pulse Rate 78 02/29/24 07:19 Respiratory Rate 18 02/29/24 07:19 Blood Pressure 105/71 02/29/24 06:42 O2 Sat by Pulse Oximetry 92 L 02/29/24 07:19 Intake & Output: Intake & Output 02/26/24 02/27/24 02/28/24 02/29/24 11:59 11:59 11:59 11:59 Intake Total 380 890 960 Output Total 060 0555 2064 Balance -82 -029 -7926 Weight 84.4 kg 84 kg 81.6 kg - Lab Result Diagrams: 02/29/24 04:35 02/29/24 04:35 Lab Results-Last 24 Hrs: Lab Results-Last 24 Hours 02/28/24 02/29/24 02/29/24 Range/Units 10:05 04:35 04:35 WBC 7.1 (3.98-10.04) x10^3/uL RBC 4.32 (3.93-5.22) x10^6/uL Hgb 12.9 (11.2-15.7) g/dL Hct 39.5 (34.1-44.9) % MCV 91.4 (79.4-94.8) fL MCH 29.9 (25.6-32.2) pg MCHC 32.7 (32.2-35.5) g/dL RDW 13.6 (11.7-14.4) % Plt Count 229 (182-369) x10^3/uL MPV 11.3 (9.4-12.3) fL Gran % 66.2 (34.0-71.1) % Immature Gran % (Auto) 0.3 (0.001-0.429) % Nucleat RBC Rel Count 0.0 (0.00-0.2) % Eos # (Auto) 0.26 (0.04-0.36) x10^3/uL Immature Gran # (Auto) 0.02 (0.001-0.031) x10^3u/L Absolute Lymphs (auto) 1.25 (1.18-3.74) x10^3/uL Absolute Monos (auto) 0.84 (0.24-0.86) x10^3/uL Absolute Nucleated RBC 0.00 (0.00-0.012) x10^3u/L Lymphocytes % 17.6 L (19.3-51.7) % Monocytes % 11.8 (4.7-12.5) % Eosinophils % 3.7 (0.7-5.8) % Basophils % 0.4 (0.1-1.2) % Absolute Granulocytes 4.69 (1.56-6.13) x10^3/uL Basophils # 0.03 (0.01-0.08) x10^3/uL Sodium 138 (135-145) mmol/L Potassium 3.8 3.8 (3.5-5.1) mmol/L Chloride 100 (98-107) mmol/L Carbon Dioxide 30 (22-30) mmol/L Anion Gap 11.4 (5-15) MEQ/L BUN 24 H (7-17) mg/dL Creatinine 0.91 (0.52-1.04) mg/dL Estimated GFR 63.0 ML/MIN Glucose 115 H (74-106) mg/dL Calcium 8.7 (8.4-10.2) mg/dL Total Bilirubin 0.70 (0.2-1.3) mg/dL AST 26 (14-36) U/L ALT 16 (0-35) U/L Alkaline Phosphatase 66 (38-126) U/L NT-Pro-B Natriuret Pep (<300) pg/mL Serum Total Protein 6.9 (6.3-8.2) g/dL Albumin 3.8 (3.5-5.0) g/dL Procalcitonin (0.030-0.080) ng/mL 02/29/24 Range/Units 05:20 WBC (3.98-10.04) x10^3/uL RBC (3.93-5.22) x10^6/uL Hgb (11.2-15.7) g/dL Hct (34.1-44.9) % MCV (79.4-94.8) fL MCH (25.6-32.2) pg MCHC (32.2-35.5) g/dL RDW (11.7-14.4) % Plt Count (182-369) x10^3/uL MPV (9.4-12.3) fL Gran % (34.0-71.1) % Immature Gran % (Auto) (0.001-0.429) % Nucleat RBC Rel Count (0.00-0.2) % Eos # (Auto) (0.04-0.36) x10^3/uL Immature Gran # (Auto) (0.001-0.031) x10^3u/L Absolute Lymphs (auto) (1.18-3.74) x10^3/uL Absolute Monos (auto) (0.24-0.86) x10^3/uL Absolute Nucleated RBC (0.00-0.012) x10^3u/L Lymphocytes % (19.3-51.7) % Monocytes % (4.7-12.5) % Eosinophils % (0.7-5.8) % Basophils % (0.1-1.2) % Absolute Granulocytes (1.56-6.13) x10^3/uL Basophils # (0.01-0.08) x10^3/uL Sodium (135-145) mmol/L Potassium (3.5-5.1) mmol/L Chloride (98-107) mmol/L Carbon Dioxide (22-30) mmol/L Anion Gap (5-15) MEQ/L BUN (7-17) mg/dL Creatinine (0.52-1.04) mg/dL Estimated GFR ML/MIN Glucose (74-106) mg/dL Calcium (8.4-10.2) mg/dL Total Bilirubin (0.2-1.3) mg/dL AST (14-36) U/L ALT (0-35) U/L Alkaline Phosphatase (38-126) U/L NT-Pro-B Natriuret Pep 3670 (<300) pg/mL Serum Total Protein (6.3-8.2) g/dL Albumin (3.5-5.0) g/dL Procalcitonin 0.092 H (0.030-0.080) ng/mL Micro Results-Entire Visit: Microbiology 02/26/24 22:14 Urine Culture - Final Clean Catch Midstream MIXED MARGIE; 3 OR MORE TYPES. NO PREDOMINANT ORGANISM. NO FURTHER WORKUP. PLEASE RESUBMIT IF CLINICALLY INDICATED. 02/26/24 21:00 Blood Culture - Preliminary Blood 02/26/24 20:56 Blood Culture - Preliminary Blood - Radiology Exams Ordered Rad Exams-Entire Visit: Radiology Procedures Category Date Time Status CHEST 1 VIEW (PORTABLE) Stat Exams 02/29/24 09:44 Taken - Procedures and Test Procedures and Tests throughout Hospitalization: Therapy Orders & Screens 02/26/24 22:23 Respiratory Therapy Assessment DAILY Comment: 02/27/24 00:15 Oxygen Nasal Cannula 2 lpm Comment: Respiratory Therapy Consult ONCE Comment: Reason For Exam: 02/27/24 01:18 RT Screen per Nursing Assess ONCE Comment: Protocol Order Physician Instructions: Greater than 3 points order RT Admission Screen Reason For Exam: Triggered on Admission Diagnosis: CHF,UTI Diagnosis: CHF,UTI Pneumonia: Yes Home O2: No Asthma: No CHF: Yes Home CPAP/BIPAP: No Home Nebs/MDI: No Total Points: 6 Discharge Exam General Appearance: no apparent distress Neurologic Exam: alert, oriented x 3, cooperative Eye Exam: PERRL Ears, Nose, Throat Exam: normal ENT inspection Neck Exam: normal inspection Respiratory Exam: crackles/rales Cardiovascular Exam: regular rate/rhythm, normal heart sounds Gastrointestinal/Abdomen Exam: soft, normal bowel sounds Pelvic Exam: deferred Rectal Exam: deferred Back Exam: normal inspection Extremity Exam: normal inspection Skin Exam: normal color Final Diagnosis/Problem List - Final Discharge Diagnosis/Problem (1) CHF exacerbation Current Visit: Yes Status: Acute Code(s): I50.9 - HEART FAILURE, UNSPECIFIED (2) Pleural effusion, left Current Visit: Yes Status: Acute Code(s): J90 - PLEURAL EFFUSION, NOT ELSEWHERE CLASSIFIED (3) UTI (urinary tract infection) Current Visit: Yes Status: Acute Code(s): N39.0 - URINARY TRACT INFECTION, SITE NOT SPECIFIED (4) History of CVA (cerebrovascular accident) Current Visit: Yes Status: Acute Code(s): Z86.73 - PRSNL HX OF TIA (TIA), AND CEREB INFRC W/O RESID DEFICITS (5) Hypokalemia Current Visit: Yes Status: Acute Code(s): E87.6 - HYPOKALEMIA - Discharge Disposition: Home, Self-Care Condition: Fair Prescriptions: New Furosemide 40 mg [Lasix 40 MG] 40 mg PO DAILY 30 Days #30 tablet Losartan Potassium 25 mg PO DAILY 30 Days #30 tablet Potassium Chloride 20 meq PO DAILY 30 Days #30 tablet Continue Aspirin EC 325 mg [Ecotrin 325 MG] 325 mg PO DAILY Additional Instructions: [facility] HAS BEEN SET UP FOR YOU. THEY WILL CALL YOU TO ARRANGE A TIME TO COME SEE YOU. THEIR PHONE NUMBER IS [phone] IF YOU NEED ANYTHING BEFORE THEIR VISIT YOU CAN USE [employer] FOR LOCAL TRANSPORT- THEY ARE [place] PAYMENT ONLY. IT IS BETTER TO SCHEDULE DAYS IN ADVANCE. YOU CAN REACH THEM AT Follow up with: LANA COWAN [ACTIVE STAFF] - 03/07/24 1:30 pm RONIT LYNCH [CONSULTING PHYSICIAN] - 03/06/24 1:30 pm (at [facility]) ARNOLD ORDOÑEZ [ACTIVE STAFF] - 1 Week
--- NOTE | 2024-02-29 10:50 | XRAY ---
CLINICAL HISTORY: pleural effusion COMPARISON: None. TECHNIQUE: X-ray of the chest obtained in 1 AP view. FINDINGS: Hazy air space opacities in right mid and lower zones. Moderate cardiomegaly present. Aortic knuckle calcifications. Right CP angle clear. Left CP angle obscured by cardiac shadow. Normal configuration of the mediastinum. The nino are normal in size and position. Spondylotic changes in the thoracic spine. Bony thorax is unremarkable. IMPRESSION: 1. Hazy air space opacities in right mid and lower zones, could be infection, CT is needed. 2. Moderate cardiomegaly. Clinical correlation is suggested. Electronically Signed by: Nita Boogie MD. (02/29/2024 10:45:42 EDT)
--- NOTE | 2024-02-29 12:18 | XRAY ---
CLINICAL HISTORY: pleural effusion COMPARISON: Chest XR dated 02-29-2024. TECHNIQUE: Contiguous axial CT images of the chest were acquired without administration of intravenous contrast. Coronal and sagittal reconstructions were obtained. One of the following dose reduction techniques was utilized for this exam: Automated exposure control, adjustment of the mA and/or kV according to patient size, and use of iterative reconstruction. CTDI: 16.13 DLP: 551.77 mGy-cm. FINDINGS: Lungs: Mild bilateral pleural effusion is noted with adjacent subsegmental compressive collapse. A right oblique fissure small effusion is also noted. Small right janeth-hilar consolidation is seen. 6 mm right middle lobe calcified nodule is seen not warranting any follow-up. No evidence of interstitial lung disease or emphysema. Mediastinum: Multiple enlarged mediastinal and hilar lymph nodes are seen most of them showing coarse central calcifications. Few enlarged pericardiac lymph nodes are seen. Cardiomegaly is noted with mild pericardiac effusion. Hilar Structures: Vascular enlargment of both nino. Trachea and Main Bronchi: The trachea and main bronchi are patent without evidence of obstruction or abnormality. Chest Wall: The chest wall is unremarkable with no evidence of soft tissue or bony abnormalities. Upper Abdomen: Upper abdominal lymphadenopathy is noted. Changes of chronic parenchymal liver disease manifested by caudate lobe hypertrophy and irregular outline. Both kidneys are atrophied. Left renal stones. Multiple calcified splenic granulomas. Bones: Degenerative changes of the visualized spine. Visualized osseous structures are normal, no evidence of fracture or lytic/sclerotic lesions. IMPRESSION: 1. Mediastinal and hilar lymphadenopathy most of them show central coarse calcifications. 2. Upper abdominal lymphadenopathy is also noted. 3. Differential diagnoses of calcified lymphadenopathy include granulomatous infections, sarcoidosis, treated lymphoma and certain types of metastasis among others. For clinical correlation and further evaluation. 4. Mild bilateral pleural effusion with right fissural extension. 5. Small right janeth-hilar consolidation is seen. Clinical correlation and follow-up are advised. 6. Cardiomegaly is noted with mild pericardiac effusion. 7. Changes of chronic liver disease. 8. Atrophic kidneys. Left renal stone. Electronically Signed by: Nita Boogie MD. (02/29/2024 12:13:49 EDT)
[2024-02-29 14:42] VITALS: BP 109/65; PULSE 82; RESP 16; TEMP 97.3
== END 2024-02-29 16:32 | disposition home or self-care (01) | DRG 292 ==
LOC: ED 20:03 → MED SURG 23:53 → OBSVTOIN 02-27 02:38
PROVIDERS: ADMIT Internal Medicine; ATTEND Internal Medicine
DX: I50.9 Heart failure, unspecified (principal); J90 Pleural effusion, not elsewhere classified; N39.0 Urinary tract infection, site not specified; Z59.82 Transportation insecurity; Z86.73 Personal history of transient ischemic attack (TIA), and cerebral infarction without residual deficits; E87.6 Hypokalemia; Z79.899 Other long term (current) drug therapy
CPT/HCPCS: 0241U; 36000; 36415; 71045; 71250; 80053; 81001; 83605; 83735; 83880; 84132; 84145; 84484; 85025; 87040; 87086; 93005; 93041; 93306; 94640; 94760; 96365; 96374; 99285; Q3014; J0696; J1650; J1940; A9270-GY

== ENCOUNTER 2025-03-05 09:44 | Emergency (ER) | payer MEDICARE, OTHER ==
--- NOTE | 2025-03-05 10:14 | ERPHSYRPT ---
- History of Present Illness Time Seen by Provider: 03/05/25 10:01 Source: patient, other (Health nurse) Physician History: Is an 85-year-old female history coronary disease who presents to the ER with her home health nurse for low blood pressure. The home health care nurse reports that her blood pressure is normally in the 90s. She states today when she came that she was in the 80s. Patient is very upset that she is in the hospital stating that "there is no reason for me to come in here." She states that she has no specific symptoms. She denies dizziness. She denies pain. She has had no fever or chills.. Extensive review of systems and at the end she does state that she had an episode of vomiting and possibly a couple episodes of diarrhea over the weekend. She denies any abdominal pain. She states she did not eat or drink anything today. She has no nausea at this time. She denies any melena. Denies any urinary symptoms fever chills or any other associated symptoms. She states that she wants to go home and not interested in answering her questions. Allergies/Adverse Reactions: No Known Drug Allergies Allergy (Verified 03/05/25 10:02) Home Medications: Atorvastatin Calcium 40 mg PO DAILY 03/05/25 [History] Carvedilol 3.125 mg [Coreg 3.125 MG] 3.125 mg PO BID 03/05/25 [History] Empagliflozin [Jardiance] 10 mg PO DAILY 03/05/25 [History] Sacubitril/Valsartan [Sacubitril-Valsartan 49-51 mg] 49 - 51 mg PO BID 03/05/25 [History] Spironolactone 25 mg [Aldactone 25 MG] 25 mg PO DAILY 03/05/25 [History] Torsemide 20 mg [Demadex 20 mg] 20 mg PO DAILY 03/05/25 [History] Vit A/Vit C/Vit E/Zinc/Copper [Preservision Areds Tablet] 1 tab PO BID 03/05/25 [History] Hx Tetanus, Diphtheria Vaccination/Date Given: (unknown) Hx Influenza Vaccination/Date Given: (unknown) Hx Pneumococcal Vaccination/Date Given: (unknown) Travel Risk - Emerging Infectious Disease Are you exhibiting symptoms associated with any current EIDs: Yes Symptoms: Fever - Review of Systems Constitutional: No Fever, No Chills Eyes: No Symptoms Ears, Nose, & Throat: No Symptoms Respiratory: No Cough, No Dyspnea Cardiac: No Chest Pain, No Edema, No Syncope Abdominal/Gastrointestinal: Vomiting, Diarrhea, Other (She thinks she had some diarrhea and 1 episode of vomiting sometime in the last week but does not recall when), No Abdominal Pain, No Nausea Genitourinary Symptoms: No Dysuria Musculoskeletal: No Back Pain, No Neck Pain Skin: No Rash Neurological: No Dizziness, No Focal Weakness, No Sensory Changes Psychological: No Symptoms Endocrine: No Symptoms All Other Systems: Reviewed and Negative - Past Medical History Pertinent Past Medical History: Yes Neurological History: Stroke ENT History: Cataracts Cardiac History: Congestive Heart Failure, High Cholesterol, Hypertension Respiratory History: No Pertinent History Endocrine Medical History: No Pertinent History Musculoskeletal History: No Pertinent History GI Medical History: Gallbladder Disease History: Other Psycho-Social History: No Pertinent History Female Reproductive Disorders: No Pertinent History Other Medical History: Kidney stones. - Past Surgical History Past Surgical History: Yes Neuro Surgical History: No Pertinent History Cardiac: No Pertinent History Respiratory: No Pertinent History Gastrointestinal: Cholecystectomy, Hernia Repair Genitourinary: Kidney Surgery Musculoskeletal: No Pertinent History Female Surgical History: No Pertinent History Other Surgical History: gangene gb Significant Family History: no pertinent family hx - Social History Smoking Status: Never smoker How long have you smoked: 2 years Exposure to second hand smoke: No Drug Use: none - Social Determinants of Health Will the patient participate in the screening: Yes Do you worry about a steady place to live?: No In the past 12 months,have you had to go without utilities?: No Transportation Issues: No Has anyone in your support network made you feel unsafe?: No Have you or anyone in your house had to go w/o enough food: No Comment: pt doesnt drive anymore and it is hard to make it to appointments - Nursing Vital Signs Nursing Vital Signs: Initial Vital Signs Temperature 97.2 F 03/05/25 09:46 Pulse Rate 78 03/05/25 09:46 Respiratory Rate 20 03/05/25 09:46 Blood Pressure 78/45 03/05/25 09:46 O2 Sat by Pulse Oximetry 92 L 03/05/25 09:46 Pain Scale Pain Intensity 0 - Physical Exam General Appearance: other (Agree, alert, oriented x 3, no meningeal or sepsis signs) Eye Exam: PERRL/EOMI, eyes nml inspection Neck Exam: supple, full range of motion Respiratory Exam: normal breath sounds, lungs clear Cardiovascular Exam: regular rate/rhythm, normal heart sounds Gastrointestinal/Abdomen Exam: soft, No normal bowel sounds, No tenderness, No distention, No organomegaly Extremity Exam: normal inspection Neurologic Exam: alert, oriented x 3, seater assembler II-XII nml as tested, No motor deficits Skin Exam: normal color SpO2 Interpretation: normal - Course EKG Interpreted by Me: Other (Sinus rhythm rate of 69 left anterior fascicular block.) Ordered Tests: Active Orders 24 hr Category Date Time Status EKG-ER Only STAT Care 03/05/25 10:07 Active IV Insertion STAT Care 03/05/25 10:07 Active ABDOMEN AND PELVIS W CONTRAST [CT] Stat Exams 03/05/25 10:57 Completed CHEST 1 VIEW (PORTABLE) Stat Exams 03/05/25 10:08 Completed BMP Stat Lab 03/05/25 11:48 Completed CBC W DIFF Stat Lab 03/05/25 10:25 Completed CMP Stat Lab 03/05/25 10:25 Completed CULTURE,URINE Stat Lab 03/05/25 10:07 Received LIPASE Stat Lab 03/05/25 10:25 Completed Lactic Acid Stat Lab 03/05/25 10:07 Completed TROPONIN Q4H Lab 03/05/25 10:25 Completed UA W/RFX UR CULTURE Stat Lab 03/05/25 10:07 Completed Medication Summary Discontinued Medications Generic Name Dose Route Start Last Admin Trade Name Julián PRN Reason Stop Dose Admin Sodium Chloride 1,000 mls @ 999 mls/hr 03/05/25 10:07 03/05/25 11:41 Sodium Chloride 0.9% 1000 Ml IV 03/05/25 11:07 Infused .Q1H1M STA Infusion Sodium Chloride Confirm 03/05/25 10:11 Sodium Chloride 0.9% 1000 Ml Administered 03/05/25 10:12 Dose 1,000 mls @ ud .ROUTE .STK-MED ONE Sodium Chloride 1,000 mls @ 999 mls/hr 03/05/25 11:33 03/05/25 11:43 Sodium Chloride 0.9% 1000 Ml IV 03/05/25 12:33 999 mls/hr .Q1H1M STA Administration Sodium Chloride Confirm 03/05/25 11:42 Sodium Chloride 0.9% 1000 Ml Administered 03/05/25 11:43 Dose 1,000 mls @ ud .ROUTE .STK-MED ONE Ceftriaxone Sodium 1 gm in 100 mls @ 200 mls/hr 03/05/25 12:35 03/05/25 13:59 Rocephin 1 Gm / 100 Ml Nacl IV 03/05/25 13:04 Infused STAT ONE Infusion Ceftriaxone Sodium Confirm 03/05/25 12:51 Rocephin 1 Gm / 100 Ml Nacl Administered 03/05/25 12:52 Dose 1 gm in 100 mls @ ud IV .STK-MED ONE Lab/Rad Data: Laboratory Result Diagrams 03/05/25 10:25 03/05/25 11:48 Laboratory Results 03/05/25 03/05/25 03/05/25 Range/Units 11:48 10:25 10:25 WBC (3.98-10.04) x10^3/uL RBC (3.93-5.22) x10^6/uL Hgb (11.2-15.7) g/dL Hct (34.1-44.9) % MCV (79.4-94.8) fL MCH (25.6-32.2) pg MCHC (32.2-35.5) g/dL RDW (11.7-14.4) % Plt Count (182-369) x10^3/uL MPV (9.4-12.3) fL Gran % (34.0-71.1) % Immature Gran % (Auto) (0.001-0.429) % Nucleat RBC Rel Count (0.00-0.2) % Eos # (Auto) (0.04-0.36) x10^3/uL Immature Gran # (Auto) (0.001-0.031) x10^3u/L Absolute Lymphs (auto) (1.18-3.74) x10^3/uL Absolute Monos (auto) (0.24-0.86) x10^3/uL Absolute Nucleated RBC (0.00-0.012) x10^3u/L Lymphocytes % (19.3-51.7) % Monocytes % (4.7-12.5) % Eosinophils % (0.7-5.8) % Basophils % (0.1-1.2) % Absolute Granulocytes (1.56-6.13) x10^3/uL Basophils # (0.01-0.08) x10^3/uL Sodium 136 136 (135-145) mmol/L Potassium 4.6 5.3 H (3.5-5.1) mmol/L Chloride 105 103 (98-107) mmol/L Carbon Dioxide 23 22 (22-30) mmol/L Anion Gap 12.5 16.7 H (5-15) MEQ/L BUN 35 H 38 H (7-17) mg/dL Creatinine 1.30 H 1.32 H (0.52-1.04) mg/dL Estimated GFR 40.8 40.1 ML/MIN Glucose 123 H 139 H (74-106) mg/dL Lactic Acid (0.4-2.0) Calcium 9.4 10.2 (8.4-10.2) mg/dL Total Bilirubin 4.20 H (0.2-1.3) mg/dL AST 306 H (14-36) U/L ALT 168 H (0-35) U/L Alkaline Phosphatase 557 H (38-126) U/L Troponin I < 0.012 (0.000-0.033) ng/mL Serum Total Protein 7.3 (6.3-8.2) g/dL Albumin 4.1 (3.5-5.0) g/dL Lipase 277 (23-300) U/L Urine Color (Yellow) Urine Appearance (Clear) Urine pH (4.6-8.0) Ur Specific [place] (1.005-1.030) Urine Protein (Negative) Urine Glucose (UA) (Negative) mg/dL Urine Ketones (Negative) Urine Blood (Negative) Urine Nitrite (Negative) Urine Bilirubin (Negative) Urine Urobilinogen (0.2) mg/dL Ur Leukocyte Esterase (Negative) U Hyaline Cast (Auto) (0-2) /LPF Urine Microscopic RBC (0-5) /HPF Urine Microscopic WBC (0-5) /HPF Ur Epithelial Cells (None Seen) /HPF Urine Bacteria (None Seen) /HPF Urine Yeast (Budding) (None Seen) /HPF Urine Culture Reflexed (NO) 03/05/25 03/05/25 03/05/25 Range/Units 10:25 10:07 10:07 WBC 8.6 (3.98-10.04) x10^3/uL RBC 4.04 (3.93-5.22) x10^6/uL Hgb 12.1 (11.2-15.7) g/dL Hct 37.0 (34.1-44.9) % MCV 91.6 (79.4-94.8) fL MCH 30.0 (25.6-32.2) pg MCHC 32.7 (32.2-35.5) g/dL RDW 15.0 H (11.7-14.4) % Plt Count 237 (182-369) x10^3/uL MPV 10.5 (9.4-12.3) fL Gran % 72.0 H (34.0-71.1) % Immature Gran % (Auto) 0.7 H (0.001-0.429) % Nucleat RBC Rel Count 0.0 (0.00-0.2) % Eos # (Auto) 0.08 (0.04-0.36) x10^3/uL Immature Gran # (Auto) 0.06 H (0.001-0.031) x10^3u/L Absolute Lymphs (auto) 1.31 (1.18-3.74) x10^3/uL Absolute Monos (auto) 0.94 H (0.24-0.86) x10^3/uL Absolute Nucleated RBC 0.00 (0.00-0.012) x10^3u/L Lymphocytes % 15.3 L (19.3-51.7) % Monocytes % 11.0 (4.7-12.5) % Eosinophils % 0.9 (0.7-5.8) % Basophils % 0.1 (0.1-1.2) % Absolute Granulocytes 6.15 H (1.56-6.13) x10^3/uL Basophils # 0.01 (0.01-0.08) x10^3/uL Sodium (135-145) mmol/L Potassium (3.5-5.1) mmol/L Chloride (98-107) mmol/L Carbon Dioxide (22-30) mmol/L Anion Gap (5-15) MEQ/L BUN (7-17) mg/dL Creatinine (0.52-1.04) mg/dL Estimated GFR ML/MIN Glucose (74-106) mg/dL Lactic Acid 1.3 (0.4-2.0) Calcium (8.4-10.2) mg/dL Total Bilirubin (0.2-1.3) mg/dL AST (14-36) U/L ALT (0-35) U/L Alkaline Phosphatase (38-126) U/L Troponin I (0.000-0.033) ng/mL Serum Total Protein (6.3-8.2) g/dL Albumin (3.5-5.0) g/dL Lipase (23-300) U/L Urine Color Dark Yellow A (Yellow) Urine Appearance Turbid A (Clear) Urine pH 6.0 (4.6-8.0) Ur Specific [place] 1.010 (1.005-1.030) Urine Protein Trace A (Negative) Urine Glucose (UA) 250 A (Negative) mg/dL Urine Ketones Negative (Negative) Urine Blood NHT (Negative) Urine Nitrite Negative (Negative) Urine Bilirubin Negative (Negative) Urine Urobilinogen 1.0 A (0.2) mg/dL Ur Leukocyte Esterase Large A (Negative) U Hyaline Cast (Auto) 6-10 A (0-2) /LPF Urine Microscopic RBC 0-2 (0-5) /HPF Urine Microscopic WBC >100 A (0-5) /HPF Ur Epithelial Cells Many A (None Seen) /HPF Urine Bacteria Few A (None Seen) /HPF Urine Yeast (Budding) Moderate A (None Seen) /HPF Urine Culture Reflexed YES (NO) [facility] [address] [place] [address], [address] [place], [place] [address] Name: TRUPTI HART Attending Physician: IN[facility] REPORT : 1940 Age: 85 Sex: F Location: ED Report #: [id number] Exam Date: 03/05/25 Status: REG ER Radiology #: Procedures: RAD/CHEST 1 VIEW (PORTABLE) Indication: Weakness. Comparison: January 27, 2025 Portable chest demonstrates grossly stable CT proven small bibasilar effusions including fluid in right major fissure. Heart remains borderline enlarged again with small mediastinal/hilar calcified nodes. Bony thorax intact again with osteopenia, mild degenerative changes, and mild dextroscoliosis. No new cardiopulmonary abnormalities. Reported by: BOBBY RAMIREZ DO Signed by: BOBBY RAMIREZ DO Signed date/time: 03/05/25 1032 - Progress Progress: improved Progress Note: 03/05/25 10:13 The patient is an 85-year-old female past medical history of coronary disease on outpatient diuretics and anticoagulation. She is a very poor historian mostly because she does not feel that she needs to be in the ER and states that she has symptoms. She has mostly unremarkable examination. She does describe some GI symptoms of vomiting and diarrhea over the weekend that have resolved. She has systolic blood pressure in the 80 and at home health nurse stated that she on a normal day runs in the 90s. Allergy symptoms somewhat unclear. Plan to give liter of IV fluids obtain baseline lab work urinalysis EKG chest x-ray. 03/05/25 11:45 Because of the hypotension significant change in liver function over the last 6 weeks with vomiting decision was made to pursue imaging. She was hydrated initially with a liter of fluids given her slightly elevated creatinine GFR in the 40s. I feel the benefits outweigh risk to look for any acute abdominal process that may be causing this. She does report history of cholecystectomy. Does not recall year. 03/05/25 13:54 0.5 L of fluids are repeat blood pressure was above 110. She is CT scan with abnormal hepatic ducts. Increasing LFTs and bili. Rocephin given for UTI suspected cause of hypotension. With patient and family patient is agreeable to transfer to get further evaluation. 03/05/25 15:22 Patient at 1310 was reevaluated. She she was given another 500 cc fluid bolus. She is previously received Rocephin. She looks improved. Discussed with the patient that she was felt not to be a candidate to transfer to [facility] after my discussion with them and the GI doctor on-call as they report that she might need ERCP and they do not have this available at their facility. They recommended I contact [facility]. I discussed the case with the hospitalist at [facility] Dr. Morales accepted the patient. Patient placed in a stepdown bed overnight transferred by ambulance. She understands that she needs to transport for further workup but is generally unhappy that she has to stay in the hospital at this time despite understanding the risk of sepsis from the UTI, concerns over recurrent hypotension. She is agreeable to transfer over to be transferred to [facility]. Risk benefits discussed with patient she voiced understanding - Departure Departure Disposition: Transfer Clinical Impression: Urinary tract infection, Hypotension, Transaminitis Condition: Fair Critical Care Time: No Referrals: AMBROSIO WILL NP [Primary Care Provider, [facility]] - Follow up/PCP as directed
[2025-03-05 10:23] VITALS: TEMP 97.2
[2025-03-05 10:27] LABS: BASOPHIL % 0.1 % (0.1-1.2); Basophil (Absolute #) 0.01 x10^3/uL (0.01-0.08); Eosinophil (Absolute #) 0.08 x10^3/uL (0.04-0.36); Hematocrit 37.0 % (34.1-44.9); Hemoglobin 12.1 g/dL (11.2-15.7); IMMATURE GRAN # 0.06 x10^3u/L (0.001-0.031); IMMATURE GRAN % 0.7 % (0.001-0.429); Lymphocyte (Absolute #) 1.31 x10^3/uL (1.18-3.74); Mean Corpuscular Hemoglobin 30.0 pg (25.6-32.2); Mean Corpuscular Hgb Concent. 32.7 g/dL (32.2-35.5); Monocyte (Absolute #) 0.94 x10^3/uL (0.24-0.86); NUCLEATED RBC # 0.00 x10^3u/L (0.00-0.012); NUCLEATED RBC % 0.0 % (0.00-0.2); Platelet Count 237 x10^3/uL (182-369); Red Blood Count 4.04 x10^6/uL (3.93-5.22); White Blood Count 8.6 x10^3/uL (3.98-10.04)
--- NOTE | 2025-03-05 10:35 | XRAY ---
Indication: Weakness. Comparison: January 27, 2025 Portable chest demonstrates grossly stable CT proven small bibasilar effusions including fluid in right major fissure. Heart remains borderline enlarged again with small mediastinal/hilar calcified nodes. Bony thorax intact again with osteopenia, mild degenerative changes, and mild dextroscoliosis. No new cardiopulmonary abnormalities.
[2025-03-05 10:41] LABS: Calcium 10.2 mg/dL (8.4-10.2); Carbon Dioxide 22.0 mmol/L (22-30); Creatinine 1 1.32 mg/dL (0.52-1.04); EST GLOMERULAR FILTRATION RATE 40.1 ML/MIN; Glucose 139.0 mg/dL (74-106); Potassium 5.3 mmol/L (3.5-5.1); SGOT/AST 306.0 U/L (14-36); SGPT/ALT 168.0 U/L (0-35); Total Protein 7.3 g/dL (6.3-8.2)
[2025-03-05 12:03] LABS: Calcium 9.4 mg/dL (8.4-10.2); Carbon Dioxide 23.0 mmol/L (22-30); Creatinine 1 1.3 mg/dL (0.52-1.04); EST GLOMERULAR FILTRATION RATE 40.8 ML/MIN; Glucose 123.0 mg/dL (74-106); Potassium 4.6 mmol/L (3.5-5.1)
[2025-03-05 12:06] LABS: Glucose, Urine 250 mg/dL (Negative); Protein,Urine Dip Trace (Negative); RBC 0-2 /HPF (0-5); WBC >100 /HPF (0-5)
[2025-03-05] MEDS ORDERED: ROCEPHIN 1 GM / 100 ML NaCl 1 GM/100 ML IVPB IV ONE (12:51)
[2025-03-05] MEDS: ROCEPHIN 1 GM / 100 ML NaCl 1 GM/100 ML IVPB IV ONE (12:55)
--- NOTE | 2025-03-05 13:48 | XRAY ---
Indication: Hypotension. Vomiting. Abnormal liver function tests/bilirubin. Multiple contiguous axial images obtained through the abdomen and pelvis using 80 cc Isovue 370 contrast. Comparison: November 30, 2012 Lung bases demonstrates new diffuse bilateral cylindrical type bronchiectasis and minimal bilateral dependent atelectasis. Incidental tiny right middle lobe/right costophrenic angle and small distal paraesophageal calcified granulomas. Heart remains enlarged. Noncontrasted stomach and bowel loops appear nonobstructed. Interval cholecystectomy with now abnormally distended biliary tree. Common bile duct distended up to 1.2 cm. No free fluid/air. Again left renal atrophy with now nonobstructing calculi, largest 8 mm. Right kidney demonstrates new nonobstructing punctate calculus. At least 2 new uterine fundal calcified fibroids, largest 2.1 x 1.7 cm. Again 13.5 cm splenomegaly and tiny hepatic/splenic calcified granulomas. Remaining liver, pancreas, spleen, adrenal glands, kidneys, ureters, and bladder are unremarkable. There is now mild scattered aortoiliac calcifications. No AAA or pathologic retroperitoneal lymphadenopathy. Osseous structures intact with osteopenia, minimal/mild degenerative changes throughout spine, minimal dextroscoliosis centered at L3, and mild degenerative changes both hips. Stable small fatty umbilical hernia. Impression: 1. Interval cholecystectomy with abnormal biliary tree distention. No obvious choledochal stone. ERCP/MRCP may yield further information. 2. Chronic findings including cardiomegaly, bronchiectasis, left renal atrophy, nonobstructing bilateral renal microcalculi, uterine calcified fibroids, splenomegaly, arteriosclerotic disease, chronic bony findings, fatty umbilical hernia, and old granulomatous disease.
[2025-03-05 16:54] VITALS: RESP 18
[2025-03-05 17:35] VITALS: BP 107/50; PULSE 78; O2SAT 98
== END 2025-03-05 17:35 | disposition short-term general hospital (02) ==
LOC: ED 09:44
DX: N39.0 Urinary tract infection, site not specified (principal); I95.9 Hypotension, unspecified; R74.01 Elevation of levels of liver transaminase levels; R74.8 Abnormal levels of other serum enzymes; I10 Essential (primary) hypertension; Z79.84 Long term (current) use of oral hypoglycemic drugs; Z79.899 Other long term (current) drug therapy

== ENCOUNTER 2025-03-28 10:06 | Emergency (ER) | payer MEDICARE, OTHER ==
--- NOTE | 2025-03-28 10:15 | ERPHSYRPT ---
- History of Present Illness Time Seen by Provider: 03/28/25 10:15 Source: patient, family Exam Limitations: no limitations Physician History: This is an 85-year-old white female patient brought to the emergency department by private vehicle accompanied by home health medicare sales executive with the concern of 2 to 3 pound weight gain in the last 2 to 3 days. The patient's home health medicare sales executive called the patient's plate mounter office prior to arrival. The nurse there directed the patient to the emergency department. Patient denies chest pain. She does not have a cough. She does not have a fever. She is not short of breath. Her room air oxygen saturation level today is 98%. Her heart rate is in the 60s to 70 bpm. Her systolic blood pressure is running in the 130s. She arrives in no distress. Again, the primary concern is the weight gain. Patient was newly prescribed torsemide. Patient has a history of hyperlipidemia, hypertension, diabetes and congestive heart failure. Timing/Duration: today Severity: mild Associated Symptoms: denies symptoms Allergies/Adverse Reactions: No Known Drug Allergies Allergy (Verified 03/28/25 10:25) Home Medications: Torsemide 20 mg [Demadex 20 mg] 20 mg PO DAILY 03/05/25 [History] Vit A/Vit C/Vit E/Zinc/Copper [Preservision Areds Tablet] 1 tab PO BID 03/05/25 [History] Aspirin EC 325 mg [Ecotrin 325 MG] 325 mg PO DAILY 03/28/25 [History] Hx Tetanus, Diphtheria Vaccination/Date Given: (unknown) Hx Influenza Vaccination/Date Given: (unknown) Hx Pneumococcal Vaccination/Date Given: (unknown) Travel Risk - International Travel Have you traveled outside of the country in past 3 weeks: No - Emerging Infectious Disease Are you exhibiting symptoms associated with any current EIDs: Yes Symptoms: Fever - Review of Systems Constitutional: No Symptoms Eyes: No Symptoms Ears, Nose, & Throat: No Symptoms Respiratory: No Symptoms Cardiac: No Symptoms Abdominal/Gastrointestinal: No Symptoms Genitourinary Symptoms: No Symptoms Musculoskeletal: No Symptoms Skin: No Symptoms Neurological: No Symptoms Psychological: No Symptoms Endocrine: No Symptoms Hematologic/Lymphatic: No Symptoms Immunological/Allergic: No Symptoms All Other Systems: Reviewed and Negative - Past Medical History Pertinent Past Medical History: Yes Neurological History: Stroke ENT History: Cataracts Cardiac History: Congestive Heart Failure, High Cholesterol, Hypertension Respiratory History: No Pertinent History Endocrine Medical History: No Pertinent History Musculoskeletal History: No Pertinent History GI Medical History: Gallbladder Disease History: Other Psycho-Social History: No Pertinent History Female Reproductive Disorders: No Pertinent History Other Medical History: Kidney stones. - Past Surgical History Past Surgical History: Yes Neuro Surgical History: No Pertinent History Cardiac: No Pertinent History Respiratory: No Pertinent History Gastrointestinal: Cholecystectomy, Hernia Repair Genitourinary: Kidney Surgery Musculoskeletal: No Pertinent History Female Surgical History: No Pertinent History Other Surgical History: gangene gb Significant Family History: no pertinent family hx - Social History Smoking Status: Never smoker How long have you smoked: 2 years Exposure to second hand smoke: No Drug Use: none - Social Determinants of Health Will the patient participate in the screening: Yes Do you worry about a steady place to live?: No In the past 12 months,have you had to go without utilities?: No Transportation Issues: No Has anyone in your support network made you feel unsafe?: No Have you or anyone in your house had to go w/o enough food: No Comment: pt doesnt drive anymore and it is hard to make it to appointments - Nursing Vital Signs Nursing Vital Signs: Initial Vital Signs Temperature 97.5 F 03/28/25 10:16 Pulse Rate 71 03/28/25 10:16 Respiratory Rate 20 03/28/25 10:16 Blood Pressure 146/67 03/28/25 10:16 O2 Sat by Pulse Oximetry 96 03/28/25 10:16 Pain Scale Pain Intensity 0 - Physical Exam General Appearance: no apparent distress, alert Eye Exam: PERRL/EOMI, eyes nml inspection Ears, Nose, Throat Exam: normal ENT inspection, moist mucous membranes Neck Exam: normal inspection, non-tender, supple, full range of motion Respiratory Exam: normal breath sounds, lungs clear, airway intact, No chest tenderness, No respiratory distress Cardiovascular Exam: regular rate/rhythm, normal heart sounds, normal peripheral pulses Gastrointestinal/Abdomen Exam: No tenderness Pelvic Exam: not done Rectal Exam: not done Back Exam: normal inspection, normal range of motion, No vertebral tenderness Extremity Exam: normal inspection, normal range of motion, pelvis stable, No calf tenderness, No pedal edema, No swelling Neurologic Exam: alert, oriented x 3, cooperative, insurance adjuster II-XII nml as tested, normal mood/affect Skin Exam: normal color, warm, dry Lymphatic Exam: No adenopathy SpO2 Interpretation: normal O2 Delivery: Room Air - Course Nursing assessment & vital signs reviewed: Yes EKG Interpreted by Me: RATE ([id number]), Sinus Rhythm, LAFB, Right Bundle Branch Block, Other (Short NH interval. QTc 457. No acute ischemia on today's twelve-lead EKG.) Ordered Tests: Active Orders 24 hr Category Date Time Status Seed Yeast Operator STAT Care 03/28/25 10:42 Active EKG-ER Only STAT Care 03/28/25 10:41 Active IV Insertion STAT Care 03/28/25 10:41 Active CBC W DIFF Stat Lab 03/28/25 10:41 Completed CMP Stat Lab 03/28/25 10:41 Completed MAGNESIUM Stat Lab 03/28/25 10:41 Completed NT PRO BNPII Stat Lab 03/28/25 10:41 Completed Lab/Rad Data: Laboratory Result Diagrams 03/28/25 10:41 03/28/25 10:41 Laboratory Results 03/28/25 03/28/25 Range/Units 10:41 10:41 WBC 5.9 (3.98-10.04) x10^3/uL RBC 3.76 L (3.93-5.22) x10^6/uL Hgb 11.5 (11.2-15.7) g/dL Hct 35.8 (34.1-44.9) % MCV 95.2 H (79.4-94.8) fL MCH 30.6 (25.6-32.2) pg MCHC 32.1 L (32.2-35.5) g/dL RDW 15.2 H (11.7-14.4) % Plt Count 231 (182-369) x10^3/uL MPV 9.4 (9.4-12.3) fL Gran % 56.5 (34.0-71.1) % Immature Gran % (Auto) 0.5 H (0.001-0.429) % Nucleat RBC Rel Count 0.0 (0.00-0.2) % Eos # (Auto) 0.32 (0.04-0.36) x10^3/uL Immature Gran # (Auto) 0.03 (0.001-0.031) x10^3u/L Absolute Lymphs (auto) 1.55 (1.18-3.74) x10^3/uL Absolute Monos (auto) 0.63 (0.24-0.86) x10^3/uL Absolute Nucleated RBC 0.00 (0.00-0.012) x10^3u/L Lymphocytes % 26.4 (19.3-51.7) % Monocytes % 10.7 (4.7-12.5) % Eosinophils % 5.4 (0.7-5.8) % Basophils % 0.5 (0.1-1.2) % Absolute Granulocytes 3.32 (1.56-6.13) x10^3/uL Basophils # 0.03 (0.01-0.08) x10^3/uL Sodium 138 (135-145) mmol/L Potassium 4.3 (3.5-5.1) mmol/L Chloride 103 (98-107) mmol/L Carbon Dioxide 25 (22-30) mmol/L Anion Gap 13.8 (5-15) MEQ/L BUN 28 H (7-17) mg/dL Creatinine 0.90 (0.52-1.04) mg/dL Estimated GFR 63.4 ML/MIN Glucose 110 H (74-106) mg/dL Calcium 9.7 (8.4-10.2) mg/dL Magnesium 2.3 (1.6-2.3) mg/dL Total Bilirubin 0.40 (0.2-1.3) mg/dL AST 26 (14-36) U/L ALT 13 (0-35) U/L Alkaline Phosphatase 104 (38-126) U/L NT-Pro-B Natriuret Pep 1990 (<300) pg/mL Serum Total Protein 8.0 (6.3-8.2) g/dL Albumin 4.2 (3.5-5.0) g/dL - Progress Progress: unchanged Progress Note: 03/28/25 10:51 My medical decision making and the assignment of moderate complexity of this patient's medical issue today is based on review of the past medical history, reviewed patient's medication list, reviewed patient drug allergy list, history present illness and physical findings on examination. The workup in this patient includes placement of intravenous line, twelve-lead EKG, CBC, CMP, BNP level, magnesium level. Differential diagnosis includes but is not limited to CHF exacerbation, renal failure, electrolyte abnormalities, arrhythmia The patient has no chest pain. She is asymptomatic. The concern is the weight gain. I did not order a chest x-ray as she is having no chest symptoms and she is not short of breath. I did not order a troponin level as the patient has no chest pain. If there are significant changes to her twelve-lead EKG I may consider adding a chest x-ray and/or troponin level. The patient does not want to be here per her statement. 03/28/25 11:46 I interpreted the patient's laboratory data results. Based on the laboratory data results, there are no acute, emergent medical issues. Counseled pt/family regarding: lab results, diagnosis, need for follow-up - Departure Departure Disposition: Home Clinical Impression: CHF (congestive heart failure), Weight gain finding Condition: Stable Critical Care Time: No Referrals: AMBROSIO WILL NP [Primary Care Provider, [facility]] - Follow up/PCP as directed Instructions: Heart Failure Additional Instructions: Continue your medications as prescribed. Call your primary care provider today, 03/28/2025 to make arrangements for follow-up appointment for further evaluation management
[2025-03-28 10:25] VITALS: TEMP 97.5
[2025-03-28 10:54] LABS: BASOPHIL % 0.5 % (0.1-1.2); Basophil (Absolute #) 0.03 x10^3/uL (0.01-0.08); Eosinophil (Absolute #) 0.32 x10^3/uL (0.04-0.36); Hematocrit 35.8 % (34.1-44.9); Hemoglobin 11.5 g/dL (11.2-15.7); IMMATURE GRAN # 0.03 x10^3u/L (0.001-0.031); IMMATURE GRAN % 0.5 % (0.001-0.429); Lymphocyte (Absolute #) 1.55 x10^3/uL (1.18-3.74); Mean Corpuscular Hemoglobin 30.6 pg (25.6-32.2); Mean Corpuscular Hgb Concent. 32.1 g/dL (32.2-35.5); Monocyte (Absolute #) 0.63 x10^3/uL (0.24-0.86); NUCLEATED RBC # 0.00 x10^3u/L (0.00-0.012); NUCLEATED RBC % 0.0 % (0.00-0.2); Platelet Count 231 x10^3/uL (182-369); Red Blood Count 3.76 x10^6/uL (3.93-5.22); White Blood Count 5.9 x10^3/uL (3.98-10.04)
[2025-03-28 11:00] VITALS: O2SAT 97
[2025-03-28 11:16] LABS: Calcium 9.7 mg/dL (8.4-10.2); Carbon Dioxide 25.0 mmol/L (22-30); Creatinine 1 0.9 mg/dL (0.52-1.04); EST GLOMERULAR FILTRATION RATE 63.4 ML/MIN; Glucose 110.0 mg/dL (74-106); NT PRO BNPII 1990.0 pg/mL (<300); Potassium 4.3 mmol/L (3.5-5.1); SGOT/AST 26.0 U/L (14-36); SGPT/ALT 13.0 U/L (0-35); Total Protein 8.0 g/dL (6.3-8.2)
[2025-03-28 12:05] VITALS: BP 140/72; PULSE 75; RESP 14
== END 2025-03-28 12:20 | disposition home or self-care (01) ==
LOC: ED 10:06
DX: I11.0 Hypertensive heart disease with heart failure (principal); I50.9 Heart failure, unspecified; R63.5 Abnormal weight gain; E11.9 Type 2 diabetes mellitus without complications; Z79.899 Other long term (current) drug therapy; Z59.82 Transportation insecurity